=== PATIENT | male | born 1960 | race African-American/Black ===

== ENCOUNTER 2018-07-18 15:30 | Inpatient (IN) | payer MEDICAID, OTHER ==
[~2018-07-18] VITALS: Ht 152.4 cm; Wt 78.0 kg
--- NOTE | 2018-07-18 15:30 | NUR ---
SENT FROM SNF FOR ABDOMINAL DISTENSION. R/O POSSIBLE INTRA ABD ABSCESS, RECTAL TEMP 101.3 ZIPPER IRONER. NAD NOTED, VSS, RESP EVEN AND UNLABORED, PT WAS PUT ON MONITOR, AND HOSPITAL GOWN. WAITING FOR MD ELLIOTT.
[2018-07-18 15:50] VITALS: BP 122/77
--- NOTE | 2018-07-18 16:13 | NUR ---
RT RECD PT TRACHED INTACT AND SECURED WITH PORTEX 8. CAME IN FOR ABDOMINAL DISTENTION. ON [facility] VENT NURIA ORDERED SETTING AC 16 500 40% +5. NO RESP DISTRESS WILL CONTINUE TO MONITOR BAG AND MASK AT HOB. SX THICK YELLOW MODERATE SECRETIONS Addendum: 07/18/18 at 1615 by AYESHA ENCARNACION RT Amended: Links added.
[2018-07-18] MEDS ORDERED: VANCOMYCIN 1 GM in IV D5W 250 ML IV ONE (16:30)
[2018-07-18] MEDS ORDERED: IV NS 0.9% 1,000 ML IV PRN ×3 (16:30→23:37)
[2018-07-18] MEDS ORDERED: PIPERACILLIN /TAZOBACTAM 3.375 G in IV D5W 50 ML IV ONE (16:30)
[2018-07-18 16:32] LABS: BASOPHILS # (AUTO) 0.1 /CMM (0.0-0.2); BASOPHILS % (AUTO) 0.3 % (0.0-2.0); EOSINOPHILS % (AUTO) 1.2 % (0.0-6.0); HEMATOCRIT 36 % (39-51); HEMOGLOBIN 11.6 g/dL (13.5-17.5); MEAN CORPUSCULAR HEMOGLOBIN 28 PG (26.0-33.0); MEAN CORPUSCULAR HGB CONC 32 g/dl (31.0-36.0); MEAN CORPUSCULAR VOLUME 88 fL (80-96); MONOCYTES # (AUTO) 1.6 /CMM (0.1-1.30); MONOCYTES % (AUTO) 6.9 % (2.0-12.0); NEUTROPHILS # (AUTO) 18.2 /CMM (1.8-8.9); NEUTROPHILS % (AUTO) 78.6 % (43.0-81.0); PLATELET COUNT (AUTO) 347 /CMM (150-450); RDW COEFFICIENT OF VARIATION 16.5 (11.5-15.0); WHITE BLOOD COUNT (AUTO) 23.2 K/uL (4.3-11.0)
[2018-07-18 16:42] LABS: CALCIUM, SERUM 9.8 mg/dL (8.5-10.1); CARBON DIOXIDE 27 mmol/L (21-32); CHLORIDE 108 mmol/L (98-107); CREATININE 1.4 mg/dL (0.6-1.3); GLUCOSE 141 mg/dL (74-106); POTASSIUM 3.6 mmol/L (3.5-5.1); SODIUM SERUM 144 mmol/L (136-145); UREA NITROGEN, BLOOD 38 mg/dL (7-18)
[2018-07-18 16:48] LABS: ALANINE AMINOTRANSFERASE 27 U/L (12-78); ALBUMIN 3.3 g/dL (3.4-5.0); ALKALINE PHOSPHATASE 100 U/L (46-116); ASPARTATE AMINOTRANSFERASE 15 U/L (15-37); BILIRUBIN,DIRECT 0.3 mg/dL (0.0-0.2); TOTAL PROTEIN, SERUM 8.5 g/dL (6.4-8.2)
[2018-07-18 16:50] LABS: TROPONIN I < 0.017 ng/mL (0.00-0.056)
--- NOTE | 2018-07-18 17:02 | NUR ---
URINEN SENT TO LAB
--- NOTE | 2018-07-18 17:12 | NUR ---
CALLED [facility] FOR PANEL CALL AND JEN REED NP WAS PAGED
[2018-07-18 17:14] LABS: APPEARANCE,URINE Clear (CLEAR); BILIRUBIN,URINE Negative (NEGATIVE); BLOOD, URINE Trace-lysed Ery/uL (NEGATIVE); COLOR,URINE Dark (YELLOW); KETONES,URINE Negative (NEGATIVE); LEUKOCYTE ESTERASE ,URINE Negative (NEGATIVE); NITRITE, URINE Negative (NEGATIVE); PROTEIN,URINE 30 mg/dl (NEGATIVE); UGLUCOSE Negative (NEGATIVE); UROBILINOGEN,URINE 0.2 EU/dL (0.2)
--- NOTE | 2018-07-18 17:24 | NUR ---
PT IS ASSIGNED TO [facility] RM#: [id number], DX: SEPSIS, AND ACCEPTING: JEN REED NP
[2018-07-18] MEDS ORDERED: NUT.237L31 GT (17:27)
[2018-07-18] MEDS ORDERED: MIDO10TA GT (17:27)
[2018-07-18] MEDS ORDERED: PANT40SU2 GT (17:27)
[2018-07-18] MEDS ORDERED: LEVE100S GT (17:27)
[2018-07-18] MEDS ORDERED: AMIO100T4 GT (17:27)
[2018-07-18 17:28] VITALS: BP 114/67
[2018-07-18 17:40] LABS: EOSINOPHILS % (MANUAL) 1 % (0-4); LYMPHOCYTES % (MANUAL) 24 % (16-48); MONOCYTES % (MANUAL) 2 % (0-11.0); NEUTROPHILS % (MANUAL) 73 (42-76)
[2018-07-18 17:43] LABS: BACTERIA,URINE None seen /HPF (None Seen); SQUAMOUS EPITHELIAL CELL,UR Few /HPF (None Seen); WBC,URINE 0-2 /HPF (0-3)
--- NOTE | 2018-07-18 19:20 | NUR ---
REPORT RECEIVED FROM MATILDA ALONZO FOR MANOHAR. PENDING CT THEN TRANSFER TO FLOOR. NAD NOTED. TOLERATING ON VENT AT ORDERED SETTINGS.
--- NOTE | 2018-07-18 19:46 | NUR ---
PT HAD CT SCAN, TRANSPORTED VIA ACLS PROTOCOL WITH RN AND RT
[2018-07-18 19:49] VITALS: BP 113/70
--- NOTE | 2018-07-18 20:45 | NUR ---
CALLED SALES CENTER MANAGER SURGEON, DR MOSS
[2018-07-18 20:54] VITALS: BP 109/68
--- NOTE | 2018-07-18 21:16 | NUR ---
PER DR WHYTE, HE WILL REMOVE GTUBE AND REPLACE WITH [facility] CATH THEN VERIFY PLACEMENT PRIOR TO TRANSPORT TO FLOOR
[2018-07-18] MEDS ORDERED: DIATR MEGLU/DIATRIZOATE SODIUM 30 ML BOTTLE (GASTROGRAPHIN) ONE (21:34)
[2018-07-18] MEDS ORDERED: DIATR MEGLU/DIATRIZOATE SODIUM 30 ML BOTTLE (GASTROGRAPHIN) PO ONE (22:00)
[2018-07-18 22:30] VITALS: BP 112/66
--- NOTE | 2018-07-18 22:30 | NUR ---
MOBILE APPLICATION DEVELOPMENT LEADCHILD WELFARE ASSISTANT NOTES RECEIVED PATIENT FROM ER VIA RROXBURY, ACCOMPANIED BY STAFF & RT USING ACLS PROTOCOL TO ROOM 308-1. PT IS NON VERBAL, OBTUNDED, OPENS EYES TO VERBAL & TACTILE STIMULI. NO SOB, RESP EVEN & UNLABORED, NO S/S OF PAIN, NO ACUTE DISTRESS NOTED UPON ADMISSION. ASSISTED TO BED SAFELY, HAS TRACH & CONNECTED TO MECHANICAL VENTILATOR BY RT WITH SETTINGS ORDERED. IV ACCESS TO LFA G 18, INTACT PATENT & RFA G 22, INTACT PATENT, SL @ THIS TIME. BODY ASSESSMENT DONE, PHOTOS TAKEN, PLACED IN THE CHART. DRESSINGS DONE TO MULTIPLE OPEN SKIN AREAS. ABDOMINAL DISTENTION NOTED WITH DIMINISHED BOWEL SOUNDS X4 QUADRANTS. NOTED WITH GT SITE WITH [facility] CATH 16FR IN PLACE TO KEEP STOMA SITE OPEN SINCE GT WAS REMOVED BY ER MD & DR MOSS WILL REPLACE GT IN AM SHIFT PER AVINASH BRITT RN. NOTED WITH GORDO BELOW CALI AMPUTATION. ALL NEEDS MET. BELONGINGS LIST REVIEWED BY SEWER PIPE PRESS OPERATOR & DOCUMENTED. PT NOTED WITH BODY TEMP OF 100.4, COOLING MEASURES DONE, EXTRA CLOTHING REMOVED FOR AIR VENTILATION. WILL RECHECK BODY TEMP ACCORDINGLY. WILL F/U WITH EPIC FOR ADMITTING ORDERS. SAFETY MEASURES IN PLACE. BED IN LOW LOCKED POSITION, CALL LIGHT WITHIN REACH. WILL MONITOR CLOSELY FOR ANY MANOHAR.
[2018-07-18 22:32] VITALS: BP 112/66
--- NOTE | 2018-07-18 22:32 | NUR ---
PT TRANSPORTED TO RM 308 IN STABLE CONDITION VIA ACLS PROTOCOL WITH RT
--- NOTE | 2018-07-18 23:00 | NUR ---
WRONG TIME DOCUMENTATION PATIENT WAS TURNED/REPOSITIONED @ 2300 TO RIGHT LATERAL POSITION, NOT @ 2100. PATIENT RECEIVED FROM ER @ 2230. WILL TURN/REPOSITION PER PROTOCOL.
--- NOTE | 2018-07-18 23:37 | NUR ---
BOOSTER ASSEMBLER NOTE REVIEWED ALL ORDERS & VERIFIED. NOTED & CARRIED OUT. WILL CONTINUE TO MONITOR THE PT CLOSELY.
[2018-07-18] MEDS ORDERED: ENOXAPARIN SODIUM 40 MG/0.4 ML DISP.SYRIN SQ ONE (23:45)
--- NOTE | 2018-07-18 23:58 | NUR ---
RECHECKED BODY TEMP PT'S BODY TEMP NOTED TO BE 99.4 @ THIS TIME. ROOM TEMP MAINTAINED. SPONGE BATH GIVEN. WILL OBSERVE CLOSELY.
[2018-07-19] VITALS: BP 104/63
[2018-07-19] MEDS ORDERED: ONDANSETRON HCL/PF 4 MG/2 ML VIAL IVP PRN
[2018-07-19] MEDS ORDERED: MORPHINE SULFATE INJ 2 MG/ML DISP.SYRIN IV PRN
[2018-07-19] MEDS ORDERED: ACETAMINOPHEN 650 MG/SUPP.RECT RC PRN
--- NOTE | 2018-07-19 00:31 | NUR ---
HELD LOVENOX PT WILL HAVE G-TUBE REPLACEMENT PROCEDURE ON 07/19/18 PER HOOP RIVETING MACHINE OPERATOR, INFORMED MD & MD ORDERED TO HOLD LOVENOX DUE TO G-TUBE REPLACEMENT IN AM. ORDER NOTED & CARRIED OUT. CHARGE NURSE MADE AWARE.
--- NOTE | 2018-07-19 03:35 | NUR ---
PILOT CONTROL OPERATOR NOTE PT'S BODY TEMP NOTED TO BE 97.8 AXILLARY @ THIS TIME. PT IS RELAXED, NO S/S OF PAIN NOTED. NO ACUTE CHANGES NOTED. MONITORING CLOSELY.
[2018-07-19 04:00] VITALS: BP 123/67
--- NOTE | 2018-07-19 06:27 | NUR ---
PRN TYLENOL SUPP GIVEN CHECKED BODY TEMP AGAIN, NOTED WITH BODY TEMP OF 100.4 AXILLARY. COOLING MEASURES DONE, ICE PACKS PLACED. PRN TYLENOL SUPP GIVEN ORDERED. WILL ENDORSE TO AM RN TO CONTINUE MONITORING CLOSELY FOR MANOHAR.
--- NOTE | 2018-07-19 06:50 | NUR ---
SENIOR WEALTH ADVISOR CLOSING NOTES PT SLEPT INTERMITTENTLY @ NIGHT, NON VERBAL, OBTUNDED, OPENS EYES TO VERBAL & TACTILE STIMULI. NO SOB, RESP EVEN & UNLABORED, NO S/S OF PAIN, NO ACUTE DISTRESS NOTED. IV ACCESS TO LFA G 18, INTACT PATENT RUNNING WITH IVF & RFA G 22, INTACT PATENT, SL. ON TELE MONITORING WITH SR 99. NPO. HOB ELEVATED. GT SITE WITH [facility] CATH 16FR IN PLACE TO KEEP STOMA SITE OPEN. ALL NEEDS MET. SAFETY MEASURES IN PLACE. BED IN LOW LOCKED POSITION, CALL LIGHT WITHIN REACH. WILL ENDORSE TO AM RN FOR CONTINUITY OF CARE.
[2018-07-19 07:37] LABS: EOSINOPHILS % (AUTO) 2.1 % (0.0-6.0); HEMATOCRIT 30 % (39-51); HEMOGLOBIN 9.8 g/dL (13.5-17.5); LYMPHOCYTES # (AUTO) 2.3 /CMM (0.8-4.8); LYMPHOCYTES % (AUTO) 13.3 % (20.0-44.0); MEAN CORPUSCULAR HEMOGLOBIN 29 PG (26.0-33.0); MEAN CORPUSCULAR HGB CONC 32 g/dl (31.0-36.0); MEAN CORPUSCULAR VOLUME 90 fL (80-96); MONOCYTES # (AUTO) 0.9 /CMM (0.1-1.30); MONOCYTES % (AUTO) 5.1 % (2.0-12.0); NEUTROPHILS # (AUTO) 13.7 /CMM (1.8-8.9); NEUTROPHILS % (AUTO) 79.5 % (43.0-81.0); PLATELET COUNT (AUTO) 269 /CMM (150-450); RDW COEFFICIENT OF VARIATION 17.4 (11.5-15.0); RED BLOOD CELL COUNT(AUTO) 3.36 MIL/uL (4.5-6.0); WHITE BLOOD COUNT (AUTO) 17.3 K/uL (4.3-11.0)
[2018-07-19 07:57] LABS: CALCIUM, SERUM 8.8 mg/dL (8.5-10.1); CREATININE 1.3 mg/dL (0.6-1.3); PHOSPHORUS 1.9 mg/dL (2.5-4.9); POTASSIUM 3.4 mmol/L (3.5-5.1)
[2018-07-19 08:00] VITALS: BP 137/72
--- NOTE | 2018-07-19 08:00 | NUR ---
Tele/RN - Assessment Patient awake, alert to self, no s/s of pain, no apparent distress noted, vent dependent with trach Portex 8 secured and intact, vent settings as follows: AC16, VT600, FiO2 40%, PEEP 5, tolerated well. Ambu bag/mask at bedside and vent alarms audible. Tele shows SR. IVF NS at 75 ml/hr infusing well on the LFA with no signs of infiltration. Skin assessment done, noted with BUE open blisters, bilateral BKA with healed stumps, sacral scarring. Wound nurse triggered. Patient on MCKENNA mattress. Patient repositioned q2h and as needed for comfort and circulation. Fall and aspiration precautions observed at all times. Will continue with current treatment plan.
[2018-07-19 08:02] LABS: THYROID STIMULATING HORMONE 2.404 uIU/mL (0.358-3.74)
--- NOTE | 2018-07-19 08:53 | NUR ---
WOUND CARE CONSULT: PT PRESENTS WITH BILATERAL BKA/S (HEALED STUMPS), SACRAL SCARRING, BILATERAL UPPER EXTREMITY OPEN BLISTERS (UNKNOWN ETIOLOGY). RECOMMENDATIONS MADE FOR SKIN PROTECTION AND WOUND CARE. DISCUSSED WITH NURSING STAFF. PT ON THERON ISOFLEX LOW AIRLOSS BED. ABDOMEN IS LARGE AND DISTENDED WITH ASHFORD CATH IN G TUBE SITE FOR DRAINAGE BY Regina DEFER TO FOR G TUBE SITE. WILL SEE PRN. ARIAS IN AGREEMENT WITH PLAN OF CARE. Addendum: 07/19/18 at 0855 by CLIFFORD STEVENS WNDNU Amended: Links added.
[2018-07-19] MEDS ORDERED: FEE PK DOSING 1 MIN EA MC ONE (09:09)
[2018-07-19] MEDS: Z GUARD REMEDY 2 OZ OINT TP SCH (10:00)
[2018-07-19] MEDS: Z GUARD REMEDY 2 OZ OINT TP PRN (11:09)
[2018-07-19] MEDS: POTASSIUM CL. PREMIX PERIPHER. 50 ML IV SCH ×2 (11:09→12:07)
[2018-07-19] MEDS: VANCOMYCIN 1 GM in IV D5W 250 ML IV SCH (11:26)
[2018-07-19] MEDS ORDERED: IV NS 0.9% 250 ML IV ONE (11:30)
[2018-07-19] MEDS: PIPERACILLIN /TAZOBACTAM 3.375 G in IV D5W 50 ML IV SCH ×3 (12:14→23:17)
[2018-07-19] MEDS: IV NS 0.9% 1,000 ML IV PRN (12:16)
[2018-07-19] MEDS ORDERED: POTASSIUM PHOSPHATE MM 7.5 MMOL in IV D5W 100 ML IV SCH (13:00)
--- NOTE | 2018-07-19 14:00 | NUR ---
Tele/RN - Consent Telephone consent obtained from Morenita Pina for EGD with PEG placement.
[2018-07-19 16:00] VITALS: BP 119/77
--- NOTE | 2018-07-19 17:06 | NUR ---
Tele/RN - Notes No new events seen, remain afebrile, without distress on the ventilator. Potassium and phosphate repleted. Family updated on plan of care. Will continue with current medical management.
[2018-07-19] MEDS: PANTOPRAZOLE 40 MG VIAL IV SCH (17:32)
--- NOTE | 2018-07-19 19:16 | NUR ---
PT RCVD TRACH PORTEX 8 ON VENT WITH NOTED SETTINGS . NURIA ORDERED SETTING AC 16 600 40% +5. TRACH INTACT AND SECURED. COURT OPERATIONS CLERK CUFF PRESSURE NOTED. VENT PLUGGED INTO RED OUTLET, ALARMS SET AND AUDIBLE . AMBU BAG @ BEDSIDE. NO RESP DISTRESS NOTED AT THIS TIME . SUCTIONED MODERATE AMOUNT OF THICK YELLOW SECRETIONS. WILL CONTINUE TO MONITOR THE PT.
--- NOTE | 2018-07-19 19:30 | NUR ---
COURSE DEVELOPER OPENING NOTES RECEIVED PATIENT RESTING, NON VERBAL, OBTUNDED, OPENS EYES TO VERBAL & TACTILE STIMULI. ON [facility] VENTILATOR WITH SETTINGS PER RT. NO SOB, RESP EVEN & UNLABORED, NO S/S OF PAIN, NO ACUTE DISTRESS NOTED. IV ACCESS TO LFA G 18, INTACT PATENT RUNNING WITH IVF & R HAND G 22, INTACT PATENT, SL. ON TELE MONITORING WITH SR 75. PT REMAINED A FEBRILE THROUGHOUT AM SHIFT, PER AM RN. NPO. HOB ELEVATED. GT SITE WITH [facility] CATH 16FR IN PLACE TO KEEP STOMA SITE OPEN, DRAINING DARK YELLOW FLUID FROM ABDOMEN. BLISTERS, OPEN SKIN DRESSINGS INTACT. SAFETY MEASURES IN PLACE. BED IN LOW LOCKED POSITION, CALL LIGHT WITHIN REACH. WILL CONTINUE TO MONITOR.
[2018-07-19 19:37] VITALS: BP 107/78
[2018-07-19 20:00] VITALS: BP 107/78
[2018-07-19] MEDS: ENOXAPARIN SODIUM 40 MG/0.4 ML DISP.SYRIN SQ SCH (21:00)
--- NOTE | 2018-07-19 21:28 | NUR ---
HELD LOVENOX PT WILL HAVE GT PLACEMENT PROCEDURE ON 07/20/18, INFORMED JOSEFINA MATHIS & JOSEFINA ORDERED TO HOLD LOVENOX TONIGHT. NOTED & CARRIED OUT.
[2018-07-20] VITALS (7 sets, daily range): BP systolic 101–142; BP diastolic 59–68
[2018-07-20] MEDS: IV NS 0.9% 1,000 ML IV PRN ×2 (03:42→18:15)
[2018-07-20] MEDS: VANCOMYCIN 1 GM in IV D5W 250 ML IV SCH ×2 (05:02→22:03)
[2018-07-20] MEDS: PIPERACILLIN /TAZOBACTAM 3.375 G in IV D5W 50 ML IV SCH ×4 (06:09→23:07)
[2018-07-20 06:21] LABS: BASOPHILS % (AUTO) 0.4 % (0.0-2.0); EOSINOPHILS % (AUTO) 4.4 % (0.0-6.0); HEMATOCRIT 28 % (39-51); HEMOGLOBIN 8.9 g/dL (13.5-17.5); LYMPHOCYTES # (AUTO) 1.5 /CMM (0.8-4.8); LYMPHOCYTES % (AUTO) 11.5 % (20.0-44.0); MEAN CORPUSCULAR HEMOGLOBIN 29 PG (26.0-33.0); MEAN CORPUSCULAR HGB CONC 32 g/dl (31.0-36.0); MEAN CORPUSCULAR VOLUME 90 fL (80-96); MONOCYTES # (AUTO) 0.7 /CMM (0.1-1.30); MONOCYTES % (AUTO) 5.5 % (2.0-12.0); NEUTROPHILS % (AUTO) 78.2 % (43.0-81.0); PLATELET COUNT (AUTO) 261 /CMM (150-450); RDW COEFFICIENT OF VARIATION 16.9 (11.5-15.0); RED BLOOD CELL COUNT(AUTO) 3.13 MIL/uL (4.5-6.0); WHITE BLOOD COUNT (AUTO) 12.8 K/uL (4.3-11.0)
[2018-07-20 06:50] LABS: CALCIUM, SERUM 8.6 mg/dL (8.5-10.1); CREATININE 1.3 mg/dL (0.6-1.3); PHOSPHORUS 3.4 mg/dL (2.5-4.9); POTASSIUM 3.3 mmol/L (3.5-5.1)
--- NOTE | 2018-07-20 06:52 | NUR ---
SUPERVISOR DENTURE DEPARTMENT CLOSING NOTES PT SLEPT INTERMITTENTLY @ NIGHT, NON VERBAL, OBTUNDED, OPENS EYES TO VERBAL & TACTILE STIMULI. NO SOB, RESP EVEN & UNLABORED, NO S/S OF PAIN, NO ACUTE DISTRESS NOTED. REMAINED AFEBRILE ALL NIGHT. IV ACCESS TO LFA G 18, INTACT PATENT RUNNING WITH IVF & R HAND G 22, INTACT PATENT, SL. ON TELE MONITORING WITH SR 73. NPO. SUCTIONED PRN. HOB ELEVATED. GT SITE WITH [facility] CATH 16FR IN PLACE TO KEEP STOMA SITE OPEN, DRAINING DARK YELLOW COLOR FLUID-750ML. ALL NEEDS MET. SAFETY MEASURES IN PLACE. BED IN LOW LOCKED POSITION, CALL LIGHT WITHIN REACH. WILL ENDORSE TO AM RN FOR CONTINUITY OF CARE.
--- NOTE | 2018-07-20 07:26 | NUR ---
RT RECEIVED PT TRACH VENT DEPENDENT WITH NOTED SETTINGS. CLAIMS REPRESENTATIVE DONE AND TRACH IS SECURE. AMBU BAG NOTED HOB. VENT ALARMS CHECKED AND AUDIBLE. VENT PLUGGED IN RED OUTLET. PT ON CONTINUOUS PULSE OX, SPO2 AND HR WITHIN NORMAL LIMITS. B/S BILATERAL RHONCHI. SX WITH MOD THK YELLOW SECRETIONS. PT TOLERATING SETTINGS WELL, NO SOB OR RESP DISTRESS NOTED. WILL CONTINUE TO MONITOR T/O SHIFT.
--- NOTE | 2018-07-20 07:46 | NUR ---
Tele/RN - Assessment Patient awake, alert to self, no s/s of pain, not in any form of distress, tolerating vent settings well. Tele shows SR. IVF NS at 75 ml/hr infusing well on the LFA with no signs of infiltration. Will do wound treatment as ordered. Plan for EGD with PEG placement today or tomorrow per GI. Fall and aspiration precautions maintained. Will continue with current treatment plan.
[2018-07-20] MEDS ORDERED: IV NS 0.9% 500 ML IV ONE (08:00)
[2018-07-20] MEDS: Z GUARD REMEDY 2 OZ OINT TP SCH (08:17)
[2018-07-20] MEDS: POTASSIUM CL. PREMIX PERIPHER. 50 ML IV SCH ×2 (12:55→13:55)
--- NOTE | 2018-07-20 14:30 | NUR ---
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 Contact isolation precautions initiated. Will notify Morenita of isolation and will provide education material for reference.
[2018-07-20] MEDS: PANTOPRAZOLE 40 MG VIAL IV SCH (17:15)
--- NOTE | 2018-07-20 18:33 | NUR ---
Tele/RN - Closing Notes No significant change in condition, remain afebrile, SR, tolerating vent settings well, no apparent distress seen. Gastric output was 200 cc this shift, stoma culture preliminary was negative. Plan for EGD with PEG in AM. Family updated on plan of care.
--- NOTE | 2018-07-20 19:10 | NUR ---
FARMER DIVERSIFIED CROPS INITIAL NOTES Received patient asleep, easily arouse, on Dejesus's position on bed, non-verbal. On enhanced contact precaution for MRSA nares. With vent tolerated well, no SOB/respiratory distress noted. On tele monitor with SR @ 60s. Abdomen noted distended. With patent Olmos on GT site with greenish output. With patent IV line LFA G#18 with NS infusing well @ 75cc/hr. With patent SL @ R hand G#22. For EGD with Gt placement tomorrow. Kept clean, dry and comfortable. Will continue to monitor.
--- NOTE | 2018-07-20 19:37 | NUR ---
PT RCVD TRACH PORTEX 8 ON VENT WITH NOTED SETTINGS . NURIA ORDERED SETTING AC 16 600 40% +5. TRACH INTACT AND SECURED. PT IS AWAKE AND DOES NOT FOLLOW COMMANDS. LIVE AMMUNITION INSPECTOR CUFF PRESSURE NOTED. VENT PLUGGED INTO RED OUTLET, ALARMS SET AND AUDIBLE . AMBU BAG @ BEDSIDE. NO RESP DISTRESS NOTED AT THIS TIME . SUCTIONED MODERATE AMOUNT OF THICK YELLOW SECRETIONS. WILL CONTINUE TO MONITOR THE PT.
[2018-07-20] MEDS: ENOXAPARIN SODIUM 40 MG/0.4 ML DISP.SYRIN SQ SCH (21:00)
--- NOTE | 2018-07-20 21:07 | NUR ---
INDEPENDENT TRADER NOTES Spoke with Dr. Moyer with order to hold Lovenox for tonight's dose, patient for EGD with GT placement tomorrow.
[2018-07-20] MEDS: MUPIROCIN OINT 2% 22 GM TUBE SCH (21:12)
[2018-07-21] VITALS: BP 122/74
[2018-07-21 04:00] VITALS: BP 129/69
[2018-07-21] MEDS: PIPERACILLIN /TAZOBACTAM 3.375 G in IV D5W 50 ML IV SCH ×4 (05:12→23:26)
[2018-07-21] MEDS: IV NS 0.9% 1,000 ML IV PRN ×2 (06:23→22:11)
[2018-07-21 06:28] LABS: BASOPHILS % (AUTO) 0.2 % (0.0-2.0); EOSINOPHILS % (AUTO) 6.4 % (0.0-6.0); HEMATOCRIT 29 % (39-51); HEMOGLOBIN 9.4 g/dL (13.5-17.5); LYMPHOCYTES # (AUTO) 1.8 /CMM (0.8-4.8); LYMPHOCYTES % (AUTO) 17.9 % (20.0-44.0); MEAN CORPUSCULAR HEMOGLOBIN 29 PG (26.0-33.0); MEAN CORPUSCULAR HGB CONC 32 g/dl (31.0-36.0); MEAN CORPUSCULAR VOLUME 90 fL (80-96); MONOCYTES # (AUTO) 0.6 /CMM (0.1-1.30); MONOCYTES % (AUTO) 6.4 % (2.0-12.0); NEUTROPHILS % (AUTO) 69.1 % (43.0-81.0); PLATELET COUNT (AUTO) 269 /CMM (150-450); RDW COEFFICIENT OF VARIATION 16.9 (11.5-15.0); RED BLOOD CELL COUNT(AUTO) 3.24 MIL/uL (4.5-6.0); WHITE BLOOD COUNT (AUTO) 10.1 K/uL (4.3-11.0)
--- NOTE | 2018-07-21 06:42 | NUR ---
CHRISTMAS TREE CONTRACTOR CLOSING NOTES Patient awake on bed, non-verbal. With vent tolerated well, no respiratory distress noted. IV line remained patent @ R hand G#22, SL and LFA G#18 with NS infusing well @ 75cc/hr. With patent Olmos at PEG site greenish output 250ml within the shift. For EGD with PEG placement today around 3pm as scheduled, consent done, at patient's chart. For type and screen. Initiated procedure checklist. or stool occult test, no BM noted within the shift. For Vanco trough before the 4th dose 07/21/2018 1600H. Abdomen distention still noted. On tele monitor with SR @ 70s. No new unusualities noted, afebrile throughout the shift.
[2018-07-21 06:56] LABS: CREATININE 1.1 mg/dL (0.6-1.3); POTASSIUM 3.2 mmol/L (3.5-5.1)
--- NOTE | 2018-07-21 07:35 | NUR ---
RT PT RECEIVED WITH A PORTEX 8 TRACH ON THE VENT WITH NOTED SETTINGS. PT IS AWAKE AND RESPONDS TO STIMULI WHEN SX'D. VENT ALARMS ARE SET AND AUDIBLE WITH BVM BY BEDSIDE. CAR MECHANIC CUFF PRESSURE NOTED. VENT IS PLUGGED INTO RED OUTLET. SX'D SMALL THIN WHITE/CLEAR SECRETIONS. NO RESPIRATORY DISTRESS NOTED AT THIS TIME, WILL CONTINUE TO MONITOR. Addendum: 07/21/18 at 0848 by JOVITA CHILDERS RT Amended: Links added.
[2018-07-21 08:00] VITALS: BP 110/75
--- NOTE | 2018-07-21 08:00 | NUR ---
Tele/RN - Assessment Patient awake, alert to self, no apparent distress, tolerating vent settings well. Tele shows SR. IVF NS at 75 ml/hr infusing well on the LFA with no signs of infiltration. Abdomen distended, shepard catheter to gastric stoma draining greenish output. Labs reviewed noted with low potassium, will relay to Md. Patient scheduled for EGD with PEG placement today at 15:00. Contact precautions maintained for MRSA nares. Will continue with current medical management.
[2018-07-21] MEDS: Z GUARD REMEDY 2 OZ OINT TP SCH (08:14)
[2018-07-21] MEDS: MUPIROCIN OINT 2% 22 GM TUBE SCH ×2 (08:16→20:31)
[2018-07-21] MEDS: POTASSIUM CL. PREMIX PERIPHER. 50 ML IV SCH ×2 (09:53→11:14)
[2018-07-21] MEDS ORDERED: POTASSIUM CHLORIDE 10 MEQ/50 ML PREMIXED IVPB FOR PERIPHERAL LINE IV ONE (10:00)
[2018-07-21 16:00] VITALS: BP 110/67
--- NOTE | 2018-07-21 16:25 | NUR ---
Tele/RN - EGD with PEG placement Patient tolerated EGD/PEG placement, vitals monitored per protocol, no s/s of pain. Per Dr. Randle, may use new PEG tomorrow AM. Post op orders noted. Will continue to monitor closely.
[2018-07-21] MEDS: VANCOMYCIN 1 GM in IV D5W 250 ML IV SCH (17:24)
[2018-07-21] MEDS: PANTOPRAZOLE 40 MG VIAL IV SCH (17:25)
--- NOTE | 2018-07-21 18:33 | NUR ---
Tele/RN - Closing Notes No acute events, remain afebrile, no s/s of pain, tele shows SB, tolerating vent settings well, no apparent distress seen. Olmos catheter removed from the abdominal fistula tract, dry dressing in place. New PEG clamped, continue IVF, Vanco and Zosyn for sepsis, potassium replaced. Family updated on plan of care. Will continue with current medical management.
--- NOTE | 2018-07-21 19:05 | NUR ---
REBAR WORKER INITIAL NOTES Received patient asleep on bed on Dejesus's position. On vent tolerated well, no SOB/respiratory distress noted, saturating at 100%. On tele monitor with Sinus Naren @ 48 while asleep but increased to 60s if awake. On S/P PEG insertion day 1, site clamped, may use PEG tomorrow AM per order. Old PEG site covered with dressing, clean and dry. With patent IV line with NS infusing well @ 75ml/hr LFA G18 and patent SL R hand G#22. No BM in the previous shift, still for Stool OB. Kept clean and dry. Will continue to monitor.
--- NOTE | 2018-07-21 19:39 | NUR ---
PT RCVD TRACH PORTEX 8 ON VENT WITH NOTED SETTINGS . NURIA ORDERED SETTING AC 16 600 30% +5. TRACH INTACT AND SECURED. PT IS AWAKE AND DOES NOT FOLLOW COMMANDS. MANAGER COMMUNITY DEVELOPMENT CUFF PRESSURE NOTED. VENT PLUGGED INTO RED OUTLET, ALARMS SET AND AUDIBLE . AMBU BAG @ BEDSIDE. NO RESP DISTRESS NOTED AT THIS TIME . SUCTIONED MODERATE AMOUNT OF THICK YELLOW SECRETIONS. WILL CONTINUE TO MONITOR THE PT.
[2018-07-21 20:00] VITALS: BP 122/71
[2018-07-21] MEDS: ENOXAPARIN SODIUM 40 MG/0.4 ML DISP.SYRIN SQ SCH (20:30)
[2018-07-22] VITALS: BP 118/67
[2018-07-22 04:00] VITALS: BP 129/73
[2018-07-22] MEDS: PIPERACILLIN /TAZOBACTAM 3.375 G in IV D5W 50 ML IV SCH ×3 (05:00→17:34)
[2018-07-22] MEDS ORDERED: GLUCERNA 1.2 1,000 ML BOTTLE GT PRN ×2 (06:00→08:10)
--- NOTE | 2018-07-22 06:34 | NUR ---
CARPENTRY SPECIALIST CLOSING NOTES Patient awake on bed, non-verbal, no s/s of discomfort noted. On vent, tolerated well, no SOB/respiratory distress noted. On tele monitor - Sinus Naren @ 58. Old PEG sited noted with soaked dressing with purulent discharge, cleaned and changed with new clean and dry dressing. Routine care done with the CATTLE ALLEY WORKER, patient tolerated the procedure well. Initiated GT feeding Glucerna 1.2 @ 60ml/hr for 20hrs as ordered; checked PEG site with water, no leaking noted. Monitored closely for adverse reactions. Stool OB was cancelled. Peripheral IV lines remained patent R hand G#22, SL and LFA G#18 with NS infusing well @ 75ml/hr. Still on IV ATB for sepsis, no ASE noted, afebrile the whole shift. Noted with minimal yellowish secretions, suctioned PRN, container and tubings changed per policy. Kept clean, dry and comfortable. Endorsed to the next shift.
[2018-07-22 07:00] LABS: CALCIUM, SERUM 8.7 mg/dL (8.5-10.1); CREATININE 1.1 mg/dL (0.6-1.3); POTASSIUM 3.2 mmol/L (3.5-5.1)
[2018-07-22 07:01] LABS: BASOPHILS % (AUTO) 0.4 % (0.0-2.0); EOSINOPHILS % (AUTO) 6.5 % (0.0-6.0); HEMATOCRIT 29 % (39-51); HEMOGLOBIN 9.1 g/dL (13.5-17.5); LYMPHOCYTES # (AUTO) 1.9 /CMM (0.8-4.8); LYMPHOCYTES % (AUTO) 23.6 % (20.0-44.0); MEAN CORPUSCULAR HEMOGLOBIN 29 PG (26.0-33.0); MEAN CORPUSCULAR HGB CONC 32 g/dl (31.0-36.0); MEAN CORPUSCULAR VOLUME 90 fL (80-96); MONOCYTES # (AUTO) 0.6 /CMM (0.1-1.30); MONOCYTES % (AUTO) 7.5 % (2.0-12.0); NEUTROPHILS # (AUTO) 4.9 /CMM (1.8-8.9); PLATELET COUNT (AUTO) 255 /CMM (150-450); RDW COEFFICIENT OF VARIATION 16.9 (11.5-15.0); RED BLOOD CELL COUNT(AUTO) 3.18 MIL/uL (4.5-6.0); WHITE BLOOD COUNT (AUTO) 7.9 K/uL (4.3-11.0)
--- NOTE | 2018-07-22 07:48 | NUR ---
RN OPENING NOTES PT RECEIVED IN BED IN LOWEST AND LOCKED POSITION, AWAKE, NON-VERBAL, NO SIGNS OF PAIN OR DISCOMFORT NOTED; ON TELE MONITOR; PT IS VENT DEPENDENT, VENT SETTINGS NOTED, NO SIGNS OF SOB/RESPIRATORY DISTRESS NOTED; PT STARTED ON AM TUBE FEEDING AND WILL MONITOR AND ASSESS RESIDUALS, BOTH R HAND G#22 AND LFA G #18 IV PATENT AND INTACT, CALL LIGHT WITHIN REACH AND WILL CONTINUE TO MONITOR AND ASSESS
--- NOTE | 2018-07-22 09:00 | NUR ---
RN NOTES PT ASSESSED BY KATHYA Louis CSR TECHNICIAN, NOTED WITH DESCENDED ABDOMEN, ORDERS FOR CT OF THE ABDOMEN, KEEP PT NPO, TUBE FEEDING STOPPED, RESIDUALS CHECKED 95 MLS NOTED. RADIOLOGY AND RESPIRATORY NOTIFIED, PT IS IN NO DISTRESS AND AROUSABLE TO NAME, WILL CONTINUE TO MONITOR.
[2018-07-22] MEDS: Z GUARD REMEDY 2 OZ OINT TP SCH (09:29)
[2018-07-22] MEDS: MUPIROCIN OINT 2% 22 GM TUBE SCH ×2 (09:30→20:58)
[2018-07-22 09:55] VITALS: BP 114/63
--- NOTE | 2018-07-22 10:00 | NUR ---
RN NOTES PT TAKEN TO CT OF ABDOMEN DUE TO RIGIDTY, RESPIRATORY AT BEDSIDE
[2018-07-22] MEDS: LEVETIRACETAM (500MG) 500 MG in IV NS 0.9% 100 ML IV SCH ×2 (10:30→21:47)
[2018-07-22] MEDS: AMIODARONE HCL 200 MG TABLET GT SCH (10:30)
--- NOTE | 2018-07-22 11:00 | NUR ---
RN NOTES PT RETURNED TO ROOM, IV FLUIDS RECONNECTED, CONNECTED TO VENT, RT AT BEDSIDE, VS STABLE, NO SIGNS OF ACUTE DISTRESS NOTED, WILL CONTINUE TO MONITOR AND ASSESS.
[2018-07-22 11:10] VITALS: BP 116/68
[2018-07-22] MEDS: VANCOMYCIN 1 GM in IV D5W 250 ML IV SCH (11:19)
[2018-07-22] MEDS: POTASSIUM CL. PREMIX PERIPHER. 50 ML IV SCH ×4 (14:26→19:13)
[2018-07-22] MEDS: IV NS 0.9% 1,000 ML IV PRN (14:34)
[2018-07-22] MEDS ORDERED: GLUCERNA 1.2 1,000 ML BOTTLE NG PRN (15:00)
[2018-07-22 16:00] VITALS: BP 126/90
[2018-07-22] MEDS: PANTOPRAZOLE 40 MG VIAL IV SCH (17:34)
--- NOTE | 2018-07-22 18:00 | NUR ---
RN CLOSING NOTES PT IN BED AT LOWEST AND LOCKED POSITION, NO S/S OF PAIN, TELE MONITOR SHOWS SB, VENT SETTINGS NOTED AND TOLERATED WELL, TUBE FEEDING RESTARTED AND TOLERATING WELL, CONTINUING IVF, CURRENTLY TAKING VANCO AND ZOSYN FOR SEPSIS, POTASSIUM GIVEN, HAD 2 BOWEL MOVEMENTS TODAY, WILL CONTINUE TO MONITOR AND ASSESS.
--- NOTE | 2018-07-22 19:15 | NUR ---
TELE/RN NOTES RECEIVED PT. LYING IN BED AWAKE WITH EYES OPEN, PT. IS NON-VERBAL, VENT/TRACH DEPENDENT. BREATHING EVEN AND UNLABORED. NO SOB, RESPIRATORY DISTRESS OR S/S OF PAIN NOTED AT THIS TIME. PT. WITH EXTERNAL ASSOCIATE PROFESSOR OF MUSICOLOGY PRESENT AND INTACT CURRENT RHYTHM = SINUS SHANNON HR 56. PT. WITH LEFT FOREARM 18 GAUGE PERIPHERAL IV PRESENT, PATENT AND INTACT ADMINISTERING TO PT. NS @ 75 ML/HR. PT. WITH G-TUBE PRESENT, PATENT AND INTACT ADMINISTERING TO PT. TUBE FEEDING GLUCERNA 1.2 @ 40ML/HR. PT. TOLERATING FEEDING WELL. NO RESIDUAL NOTED AT THIS TIME. BED LOCKED AND IN LOWEST POSITION, SIDE RAILS UP X3, BED ALARM ON, WILL CONTINUE TO MONITOR.
[2018-07-22 20:00] VITALS: BP 126/72
[2018-07-22] MEDS: ENOXAPARIN SODIUM 40 MG/0.4 ML DISP.SYRIN SQ SCH (20:58)
--- NOTE | 2018-07-22 21:57 | NUR ---
PT RECEIVED [facility] VENT WITH NOTED SETTINGS. PT IS AWAKE, BUT NON VERBAL. VENT ALARMS ARE ON AND AUDIBLE. AMBU BAG IS AT BEDSIDE. VENT IS PLUGGED INTO RED OUTLET. SX'D SMALL THIN CLEAR SECRETIONS. NO RESPIRATORY DISTRESS NOTED AT THIS TIME, WILL CONTINUE TO MONITOR PT. Addendum: 07/22/18 at 2159 by HOSSEIN COLLAZO RT Amended: Links added.
[2018-07-23] VITALS (7 sets, daily range): BP systolic 99–134; BP diastolic 58–80
[2018-07-23] MEDS: PIPERACILLIN /TAZOBACTAM 3.375 G in IV D5W 50 ML IV SCH ×3 (00:34→12:44)
[2018-07-23] MEDS: VANCOMYCIN 1 GM in IV D5W 250 ML IV SCH ×2 (05:09→22:44)
--- NOTE | 2018-07-23 06:44 | NUR ---
TELE/RN NOTES PT. IS LYING IN BED RESTING. PT. IS NON-VERBAL, VENT/TRACH DEPENDENT. BREATHING EVEN AND UNLABORED. NO SOB, RESPIRATORY DISTRESS OR S/S OF PAIN NOTED AT THIS TIME AND THROUGHOUT SHIFT. PT. WITH EXTERNAL SUPERVISOR FIREWORKS ASSEMBLY PRESENT AND INTACT CURRENT RHYTHM = SINUS SHANNON HR 51. PT. WITH LEFT FOREARM 18 GAUGE PERIPHERAL IV PRESENT, PATENT AND INTACT ADMINISTERING TO PT. NS @ 75 ML/HR. PT. WITH G-TUBE PRESENT, PATENT AND INTACT ADMINISTERING TO PT. TUBE FEEDING GLUCERNA 1.2 @ 50ML/HR. PT. TOLERATING FEEDING WELL. NO RESIDUAL NOTED AT THIS TIME. ALL PT. NEEDS MET. PT. OFFLOADED, TURNED AND REPOSITIONED Q2H AND NEEDED. BED LOCKED AND IN LOWEST POSITION, SIDE RAILS UP X3, BED ALARM ON, WILL ENDORSE TO DAYSLAFT NURSE FOR CONTINUITY OF CARE.
[2018-07-23 07:25] LABS: BASOPHILS % (AUTO) 0.5 % (0.0-2.0); EOSINOPHILS % (AUTO) 4.6 % (0.0-6.0); HEMATOCRIT 31 % (39-51); HEMOGLOBIN 9.8 g/dL (13.5-17.5); LYMPHOCYTES # (AUTO) 2.3 /CMM (0.8-4.8); LYMPHOCYTES % (AUTO) 26.2 % (20.0-44.0); MEAN CORPUSCULAR HEMOGLOBIN 29 PG (26.0-33.0); MEAN CORPUSCULAR HGB CONC 32 g/dl (31.0-36.0); MEAN CORPUSCULAR VOLUME 90 fL (80-96); MONOCYTES # (AUTO) 0.5 /CMM (0.1-1.30); MONOCYTES % (AUTO) 5.9 % (2.0-12.0); NEUTROPHILS # (AUTO) 5.5 /CMM (1.8-8.9); NEUTROPHILS % (AUTO) 62.8 % (43.0-81.0); PLATELET COUNT (AUTO) 231 /CMM (150-450); RDW COEFFICIENT OF VARIATION 16.2 (11.5-15.0); RED BLOOD CELL COUNT(AUTO) 3.41 MIL/uL (4.5-6.0); WHITE BLOOD COUNT (AUTO) 8.8 K/uL (4.3-11.0)
--- NOTE | 2018-07-23 07:28 | NUR ---
RN OPENING NOTES PT RECEIVED IN BED AT LOWEST AND LOCKED POSITION, PT WAS AWAKE NON-VERBAL, A/O X1, VS STABLE, NO S/S OF DISTRESS OR PAIN NOTED, VENT DEPENDENT AND SETTINGS NOTED, ON TELE MONITOR WITH CURRENT RHYTHM BEING SB = 56, LFA 18 G IV PATENT AND INTACT WITH IVF RUNNING, G TUBE PRESENT WITH FEEDING CURRENTLY RUNNING AT 50 ML AND TOLERATING FEEDING, CALL LIGHT WITHIN REACH AND WILL CONTINUE TO MONITOR
[2018-07-23 07:34] LABS: CALCIUM, SERUM 8.5 mg/dL (8.5-10.1); CREATININE 1.1 mg/dL (0.6-1.3); POTASSIUM 3.2 mmol/L (3.5-5.1)
[2018-07-23] MEDS: POTASSIUM CL. PREMIX PERIPHER. 50 ML IV SCH ×2 (08:57→11:31)
[2018-07-23] MEDS ORDERED: POTASSIUM CHLORIDE 10 MEQ/50 ML PREMIXED IVPB FOR PERIPHERAL LINE IV ONE (09:00)
[2018-07-23] MEDS: AMIODARONE HCL 200 MG TABLET GT SCH (09:00)
[2018-07-23] MEDS: Z GUARD REMEDY 2 OZ OINT TP SCH (09:08)
[2018-07-23] MEDS: MUPIROCIN OINT 2% 22 GM TUBE SCH ×2 (09:09→21:18)
[2018-07-23] MEDS: IV NS 0.9% 1,000 ML IV PRN (10:32)
[2018-07-23] MEDS: LEVETIRACETAM (500MG) 500 MG in IV NS 0.9% 100 ML IV SCH ×2 (10:32→20:58)
[2018-07-23] MEDS: MIDODRINE HCL (5MG) 5 MG TABLET PO SCH ×2 (12:46→16:19)
--- NOTE | 2018-07-23 14:30 | NUR ---
COP NOTES PATIENT NOTED WITH PULSE OF 38-39 WHILE SLEEPING. ONCE PATIENT AWAKE PULSE INCREASES TO 45-52 SINUS SHANNON. ASYMPTOMATIC. BAKARI PUMP ASSEMBLER NOTIFIED ORDERS TO CONTINUE TO MONITOR.
[2018-07-23] MEDS: LEVOFLOXACIN 750 MG /D5W 150ML 750 MG in PREMIX 1 EA IV SCH (15:05)
[2018-07-23] MEDS: LACTOBACILLUS RHAMNOSUS GG 1 EACH CAP.SPRINK PO SCH (16:13)
--- NOTE | 2018-07-23 16:20 | NUR ---
SENIOR ORACLE DATABASE DEVELOPER NOTES PATIENT BP NOTED 134/74 MIDODRONE HELD WILL CONTINUE TO MONITOR.
[2018-07-23] MEDS: PANTOPRAZOLE 40 MG VIAL IV SCH (16:32)
--- NOTE | 2018-07-23 17:00 | NUR ---
[facility] WITH NOTED SETTINGS. PT IS AWAKE, BUT NON VERBAL. VENT ALARMS ARE ON AND AUDIBLE. AMBU BAG IS AT BEDSIDE. VENT IS PLUGGED INTO RED OUTLET. SX'D SMALL THIN CLEAR SECRETIONS. NO RESPIRATORY DISTRESS NOTED AT THIS TIME, WILL CONTINUE TO MONITOR PT.
--- NOTE | 2018-07-23 18:00 | NUR ---
RN CLOSING NOTES PT. IS IN BED IN LOWEST AND LOCKED POSITION SIDE RAILS UP X2, VENT AND TRACH DEPENDENT, NO S/S OF DISTRESS OR PAIN NOTED. HAS TELE MONITOR WITH RHYTHM = SB 40-50s, LFA IV 18 G PATENT AND INTACT RUNNING IVF ORDERED, G-TUBE PRESENT WITH FEEDING RUNNING AT 50 ML/HR AND TOLERATING WELL PATENT AND INTACT WITH A RESIDUAL OF 20 ML, PT NEEDS MET, CALL LIGHT WITHIN REACH AND WILL ENDORSE TO NIGHT NURSE
--- NOTE | 2018-07-23 19:00 | NUR ---
BOAT RENTAL CLERK INITIAL NOTES Received patient awake, nonverbal, opens eyes simultaneously, on bed on Dejesus's position. Tolerating vent setting well, no SOB/respiratory distress noted, saturating at 98%. On tele monitor with Sinus Naren @ 54. With patent peripheral IV line with NS infusing well @ 75ml/hr LFA G18. With GT feeding Glucerna 1.2 @ 60ml.hr tolerated well, abdomen distended, soft, active bowel sound. Kept HOB up, on aspiration precaution. Old PEG site covered with clean dry dressing, BUE blisters covered with clean dry dressing. Kept clean and dry. Will continue to monitor.
[2018-07-23] MEDS: ENOXAPARIN SODIUM 40 MG/0.4 ML DISP.SYRIN SQ SCH (20:59)
[2018-07-24] VITALS: BP 128/74
--- NOTE | 2018-07-24 02:46 | NUR ---
PATIENT WAS RECEIVED ON CONTINUOUS VENT SUPPORT ON NOTED VENT SETTINGS. B/S ARIK ZUNIGA WITH A MODERATE AMOUNT OF THIN PALE YELLOW SECRETIONS. ALARMS ON AND AUBIBLE,VENT PLUGGED INTO RED OUTLET .TRACH TUBE PATENT AND SECURED.WILL CONTINUE TO MONITOR. Addendum: 07/24/18 at 0246 by RAMAN CAMP RT Amended: Links added.
[2018-07-24 04:00] VITALS: BP 130/77
[2018-07-24] MEDS: IV NS 0.9% 1,000 ML IV PRN (04:41)
--- NOTE | 2018-07-24 06:40 | NUR ---
BUSINESS OBJECTS ANALYST CLOSING NOTES Patient on bed awake, no s/s of discomfort noted. On vent tolerated well, no SOB/respiratory distress noted. Suction Q2h and PRN. Routine care done, with patient tolerating well, no complications noted. Off GTF at 2AM and resumed at 6AM @ 60ml/hr, tolerating well. Abdomen remained distented, bowel sounds active in all quadrants, no vomiting noted. Had BM with appearance as expected because of GTF. Remained afebrile all throughout the shift. Tele monitor shows sinus tanner at 58. Kept clean, dry and comfortable. Endorsed to the next shift.
--- NOTE | 2018-07-24 07:50 | NUR ---
ms rn received on bed, awake,non verbal,vent dependent patient, not in any for of distress,respirations even and unlabored,no sob noted. lungs have ronchi bilaterally, abdomen soft,positive bowel sounds, g tube intact,tolerating feeding well ,w/ 30ml residual, no s/s of distress noted.,will monitor patient's condition.
[2018-07-24 08:00] VITALS: BP 122/69
--- NOTE | 2018-07-24 08:30 | NUR ---
ms rhys due meds given via g tube ,tolerated well.
--- NOTE | 2018-07-24 08:35 | NUR ---
RT RECD PT TRACHED INTACT AND SECURED ON MECH VENT NURIA ORDERED SETTINGS. ALARMS ON AND AUDIBLE BAG AND MASK AT HOB SX THICK PALE YELLOW SMALL SECRETIONS. NO RESP DISTRESS NOTED ATT WILL CONTINUE TO MONITOR
[2018-07-24] MEDS: AMIODARONE HCL 200 MG TABLET GT SCH (09:00)
[2018-07-24] MEDS ORDERED: LEVETIRACETAM SOL (5 ML) 100 MG/ML UDC GT SCH (09:00)
[2018-07-24] MEDS: LACTOBACILLUS RHAMNOSUS GG 1 EACH CAP.SPRINK PO SCH (09:46)
[2018-07-24] MEDS: MIDODRINE HCL (5MG) 5 MG TABLET PO SCH ×2 (09:47→13:00)
[2018-07-24] MEDS: Z GUARD REMEDY 2 OZ OINT TP SCH (09:48)
[2018-07-24] MEDS: MUPIROCIN OINT 2% 22 GM TUBE SCH (09:48)
[2018-07-24] MEDS: Z GUARD REMEDY 2 OZ OINT TP PRN (09:48)
[2018-07-24] MEDS ORDERED: POTASSIUM CHLORIDE 20 MEQ TAB.PRT.SR PO ONE (10:30)
[2018-07-24] MEDS ORDERED: LEVO750T46 IV (10:31)
[2018-07-24] MEDS ORDERED: POTA20TA83 GT (10:31)
[2018-07-24] MEDS ORDERED: VANC1PLA9 IV (10:31)
[2018-07-24 11:54] LABS: BASOPHILS % (AUTO) 0.3 % (0.0-2.0); EOSINOPHILS % (AUTO) 3.9 % (0.0-6.0); HEMATOCRIT 31 % (39-51); HEMOGLOBIN 9.6 g/dL (13.5-17.5); LYMPHOCYTES # (AUTO) 3.8 /CMM (0.8-4.8); LYMPHOCYTES % (AUTO) 40.6 % (20.0-44.0); MEAN CORPUSCULAR HEMOGLOBIN 28 PG (26.0-33.0); MEAN CORPUSCULAR HGB CONC 31 g/dl (31.0-36.0); MEAN CORPUSCULAR VOLUME 90 fL (80-96); MONOCYTES # (AUTO) 0.6 /CMM (0.1-1.30); MONOCYTES % (AUTO) 6.4 % (2.0-12.0); NEUTROPHILS # (AUTO) 4.6 /CMM (1.8-8.9); NEUTROPHILS % (AUTO) 48.8 % (43.0-81.0); PLATELET COUNT (AUTO) 270 /CMM (150-450); RDW COEFFICIENT OF VARIATION 16.9 (11.5-15.0); RED BLOOD CELL COUNT(AUTO) 3.42 MIL/uL (4.5-6.0); WHITE BLOOD COUNT (AUTO) 9.4 K/uL (4.3-11.0)
[2018-07-24 12:04] LABS: CALCIUM, SERUM 8.7 mg/dL (8.5-10.1); CREATININE 1.1 mg/dL (0.6-1.3); POTASSIUM 3.3 mmol/L (3.5-5.1)
[2018-07-24 13:00] VITALS: BP 163/63
[2018-07-24] MEDS: LEVOFLOXACIN 750 MG /D5W 150ML 750 MG in PREMIX 1 EA IV SCH (16:10)
--- NOTE | 2018-07-24 16:28 | NUR ---
ms rn patient transferred to snf w/ report given to Hayden joiner,all needs attended.
== END 2018-07-24 16:10 | DRG 252 ==
LOC: ER 15:54 → TELE 18:00
PROVIDERS: ADMIT Hospitalist; ATTEND Nurse Practitioner Acute Care
PROC: 5A1955Z Respiratory Ventilation, Greater than 96 Consecutive Hours (ICD-10-PCS; 2018-07-18)
PROC: 0D20XUZ Change Feeding Device in Upper Intestinal Tract, External Approach (ICD-10-PCS; principal; 2018-07-21 14:05)
DX: K94.22 Gastrostomy infection (principal); J69.0 Pneumonitis due to inhalation of food and vomit; K65.1 Peritoneal abscess; G93.41 Metabolic encephalopathy; A41.9 Sepsis, unspecified organism; Z99.11 Dependence on respirator [ventilator] status; J96.11 Chronic respiratory failure with hypoxia; G40.909 Epilepsy, unspecified, not intractable, without status epilepticus; K94.23 Gastrostomy malfunction; D68.59 Other primary thrombophilia; Y83.3 Surgical operation with formation of external stoma as the cause of abnormal reaction of the patient, or of later complication, without mention of misadventure at the time of the procedure; Y82.9 Unspecified medical devices associated with adverse incidents; Y92.129 Unspecified place in nursing home as the place of occurrence of the external cause; L02.211 Cutaneous abscess of abdominal wall; R13.10 Dysphagia, unspecified; Z79.899 Other long term (current) drug therapy; K21.9 Gastro-esophageal reflux disease without esophagitis; D63.8 Anemia in other chronic diseases classified elsewhere; Z89.512 Acquired absence of left leg below knee; Z89.511 Acquired absence of right leg below knee; K59.00 Constipation, unspecified; Z74.01 Bed confinement status; I48.2 Chronic atrial fibrillation; E87.6 Hypokalemia; Z86.73 Personal history of transient ischemic attack (TIA), and cerebral infarction without residual deficits
CPT/HCPCS: 31720; 36415; 71045-TC; 74018; 80048-TC; 80061-TC; 80076-TC; 80202-TC; 81000-TC; 83605-TC; 83735-TC; 84100-TC; 84443-TC; 84484-TC; 85025-TC; 85730-TC; 86850-TC; 87040-TC; 87070-TC; 87081-TC; 87086-TC; 87186-TC; 94002-TC; 94003-TC; 94760-TC; 99082-TC; A4216; A4606; A6253; A6402; A6403; C9113; J1650; J1953; J1956; J2543; J3370; J3480; J3490; J7030; J7040; J7050; J7060; Q9963; Z7610

== ENCOUNTER 2018-09-01 15:26 | Emergency (ER) | payer OTHER ==
[~2018-09-01] VITALS: Ht 172.7 cm; Wt 78.9 kg
[~2018-09-01 15:26] MED LIST: AMIO100T4 GT; LEVE100S GT; LEVO750T46 IV; MIDO10TA GT; NUT.237L31 GT; PANT40SU2 GT; POTA20TA83 GT; VANC1PLA9 IV
--- NOTE | 2018-09-01 15:30 | NUR ---
NAT FROM [facility] DT WORSENING ABDOMINAL DISTENSION/ ABSCESS. PATIENT IS AWAKE, NON VERBAL. VENT TRACHE DEPENDENT. NOTED ABDOMINAL AREA COVERED WITH DRESSING. PATIENT IS AFEBRILE. VSS
[2018-09-01 16:46] LABS: APPEARANCE,URINE Clear (CLEAR); BILIRUBIN,URINE Negative (NEGATIVE); BLOOD, URINE Negative Ery/uL (NEGATIVE); COLOR,URINE Yellow (YELLOW); KETONES,URINE Negative (NEGATIVE); LEUKOCYTE ESTERASE ,URINE Negative (NEGATIVE); NITRITE, URINE Negative (NEGATIVE); PROTEIN,URINE Negative (NEGATIVE); UGLUCOSE Negative (NEGATIVE); UROBILINOGEN,URINE 0.2 EU/dL (0.2)
[2018-09-01 16:49] LABS: BASOPHILS # (AUTO) 0.3 /CMM (0.0-0.2); BASOPHILS % (AUTO) 1.8 % (0.0-2.0); EOSINOPHILS % (AUTO) 3.9 % (0.0-6.0); HEMATOCRIT 27 % (39-51); HEMOGLOBIN 9.4 g/dL (13.5-17.5); LYMPHOCYTES # (AUTO) 3.2 /CMM (0.8-4.8); LYMPHOCYTES % (AUTO) 21.2 % (20.0-44.0); MEAN CORPUSCULAR HGB CONC 35 g/dl (31.0-36.0); MEAN CORPUSCULAR VOLUME 89 fL (80-96); MONOCYTES # (AUTO) 0.7 /CMM (0.1-1.30); MONOCYTES % (AUTO) 4.5 % (2.0-12.0); NEUTROPHILS # (AUTO) 10.1 /CMM (1.8-8.9); NEUTROPHILS % (AUTO) 68.6 % (43.0-81.0); PLATELET COUNT (AUTO) 366 /CMM (150-450); RDW COEFFICIENT OF VARIATION 13.9 (11.5-15.0); RED BLOOD CELL COUNT(AUTO) 3.01 MIL/uL (4.5-6.0); WHITE BLOOD COUNT (AUTO) 14.9 K/uL (4.3-11.0)
[2018-09-01 16:54] LABS: CALCIUM, SERUM 9.5 mg/dL (8.5-10.1); CREATININE 1.8 mg/dL (0.6-1.3); POTASSIUM 4.2 mmol/L (3.5-5.1)
[2018-09-01 16:56] VITALS: BP 127/82
--- NOTE | 2018-09-01 16:59 | NUR ---
RT NOTE PT PLACED ON VENT PER MD ORDER. SETTINGS ENDORSED BY TRANSPORT RT AC 14 600 40% +5. PT HAS PORTEX 8 CUFFED TRACH TUBE IN PLACE. CUFF INFLATED VIA SPORTS BOOK BOARD ATTENDANT. TRACH MIDLINE AND SECURE. ALARMS SET PER PROTOCOL AND AUDIBLE. VENT PLUGGED IN TO RED OUTLET. AMBU BAG AT BED SIDE. NO DISTRESS NOTED AT MOMENT. Addendum: 09/01/18 at 1702 by ASHVIN CAMP RT Amended: Links added.
[2018-09-01 17:00] LABS: ALBUMIN 3.6 g/dL (3.4-5.0); BILIRUBIN,DIRECT 0.1 mg/dL (0.0-0.2); BILIRUBIN,TOTAL 0.4 mg/dL (0.2-1.0)
[2018-09-01 17:33] LABS: EOSINOPHILS % (MANUAL) 4 % (0-4); LYMPHOCYTES % (MANUAL) 29 % (16-48); MONOCYTES % (MANUAL) 3 % (0-11.0); NEUTROPHILS % (MANUAL) 64 (42-76)
--- NOTE | 2018-09-01 17:33 | NUR ---
PATIENT IS BACK FROM CT
[2018-09-01] MEDS ORDERED: SACC250C GT (17:37)
[2018-09-01] MEDS ORDERED: NA P133E RC (17:37)
[2018-09-01] MEDS ORDERED: BLOO-668 IN (17:37)
[2018-09-01] MEDS ORDERED: IPRA3AMP23 IH ×2 (17:37)
[2018-09-01] MEDS ORDERED: ACET-868 GT ×2 (17:37)
[2018-09-01] MEDS ORDERED: INSU100V27 SQ (17:37)
[2018-09-01] MEDS ORDERED: BISA10SU8 RC (17:37)
[2018-09-01] MEDS ORDERED: ACET-2605 GT (17:37)
[2018-09-01] MEDS ORDERED: DOCU50LI GT (17:37)
[2018-09-01] MEDS ORDERED: METO25TA20 GT (17:38)
[2018-09-01] MEDS ORDERED: MAGN400O6 GT (17:38)
[2018-09-01] MEDS ORDERED: AMIN30LI4 GT (17:38)
[2018-09-01] MEDS ORDERED: OMEP40CA37 GT (17:38)
[2018-09-01] MEDS ORDERED: AMIK250V8 IV (17:40)
[2018-09-01] MEDS ORDERED: VANC1VIA2 IV (17:40)
--- NOTE | 2018-09-01 18:56 | NUR ---
CALLED DR JAMESON'S ANSWERING SERVICE, WAS PAGED.
--- NOTE | 2018-09-01 19:00 | NUR ---
DR JAMESON CALLED BACK ON THE PHONE WITH DR PFEIFFER.
[2018-09-01] MEDS: IV NS 0.9% 1,000 ML BAG IV ONE (19:36)
[2018-09-01 20:12] VITALS: BP 96/67
[2018-09-01 20:36] VITALS: BP 113/78
--- NOTE | 2018-09-01 20:38 | NUR ---
TRANSPORT AT BEDSIDE REPORT GIVEN TO EMT AND RT.
== END 2018-09-01 21:03 | disposition home or self-care (01) ==
LOC: ER 15:28
DX: K56.7 Ileus, unspecified (principal); D72.829 Elevated white blood cell count, unspecified; D64.9 Anemia, unspecified; E87.1 Hypo-osmolality and hyponatremia; E86.0 Dehydration; K46.9 Unspecified abdominal hernia without obstruction or gangrene; N17.9 Acute kidney failure, unspecified; R74.9 Abnormal serum enzyme level, unspecified; R79.89 Other specified abnormal findings of blood chemistry; R14.0 Abdominal distension (gaseous); I12.9 Hypertensive chronic kidney disease with stage 1 through stage 4 chronic kidney disease, or unspecified chronic kidney disease; E11.22 Type 2 diabetes mellitus with diabetic chronic kidney disease; N18.9 Chronic kidney disease, unspecified; G93.40 Encephalopathy, unspecified; I73.9 Peripheral vascular disease, unspecified; Z86.73 Personal history of transient ischemic attack (TIA), and cerebral infarction without residual deficits; Z87.01 Personal history of pneumonia (recurrent); Z87.440 Personal history of urinary (tract) infections; Z89.512 Acquired absence of left leg below knee; Z89.511 Acquired absence of right leg below knee; Z93.0 Tracheostomy status; Z93.1 Gastrostomy status; Z79.4 Long term (current) use of insulin; Z79.899 Other long term (current) drug therapy
CPT/HCPCS: 36415; 71045; 74176; 80048; 80076; 81001; 83690; 85025; 85730; 87081; 93005; 96360; 99285; A4606; J7030; Z7610; 81000-TC

== ENCOUNTER 2019-06-23 14:38 | Inpatient (IN) | payer MEDICAID ==
[~2019-06-23] VITALS: Ht 165.1 cm; Wt 82.6 kg
[~2019-06-23 14:38] MED LIST changes: +ACET-2605 GT; +ACET-868 GT; +ASCO500T10 GT; +BISA10SU11 RC; +BLOO-668 IN; +DOCU50LI GT; +INSU100V27 SQ; +IPRA3AMP23 IH; +LACT-209 GT; -LEVO750T46 IV; +MAGN400O6 GT; +METO25TA20 GT; +MULT-1094 GT; +NA P133E RC; -NUT.237L31 GT; -POTA20TA83 GT; +SACC250C GT; -VANC1PLA9 IV; +ZINC220T GT
--- NOTE | 2019-06-23 14:52 | NUR ---
PT BIB FROM SNF FOR ABD DISTENTION; PT NON VERBAL, VENT TRACHE DEPENDENT; PT ON MONITOR, VSS, NAD NOTED, PENDING MD ELLIOTT
[2019-06-23] MEDS ORDERED: ONDANSETRON HCL/PF 4 MG/2 ML VIAL IVP ONE (15:00)
[2019-06-23] MEDS ORDERED: IV NS 0.9% 500 ML BAG IV ONE (15:00)
--- NOTE | 2019-06-23 15:15 | NUR ---
PER DR WHARTON, DO INTERMITTENT SUCTION ON GT. CONNECTED TO WALL SUCTION, NO OUTPUT AT THIS TIME
[2019-06-23 15:25] LABS: BASOPHILS % (AUTO) 0.3 % (0.0-2.0); EOSINOPHILS % (AUTO) 1.5 % (0.0-6.0); HEMATOCRIT 36 % (39-51); HEMOGLOBIN 11.6 g/dL (13.5-17.5); LYMPHOCYTES % (AUTO) 17.2 % (20.0-44.0); MEAN CORPUSCULAR HGB CONC 32 g/dl (31.0-36.0); MEAN CORPUSCULAR VOLUME 92 fL (80-96); MONOCYTES # (AUTO) 0.8 /CMM (0.1-1.30); MONOCYTES % (AUTO) 7.1 % (2.0-12.0); NEUTROPHILS # (AUTO) 8.7 /CMM (1.8-8.9); NEUTROPHILS % (AUTO) 73.9 % (43.0-81.0); PLATELET COUNT (AUTO) 269 /CMM (150-450); WHITE BLOOD COUNT (AUTO) 11.7 K/uL (4.3-11.0)
[2019-06-23 15:33] LABS: CALCIUM, SERUM 9.6 mg/dL (8.5-10.1); CARBON DIOXIDE 25 mmol/L (21-32); CHLORIDE 104 mmol/L (98-107); CREATININE 1.1 mg/dL (0.6-1.3); GLUCOSE 112 mg/dL (74-106); POTASSIUM 3.6 mmol/L (3.5-5.1); SODIUM SERUM 141 mmol/L (136-145); UREA NITROGEN, BLOOD 30 mg/dL (7-18)
[2019-06-23 15:38] LABS: ALANINE AMINOTRANSFERASE 16 U/L (12-78); ALBUMIN 3.5 g/dL (3.4-5.0); ALKALINE PHOSPHATASE 107 U/L (46-116); ASPARTATE AMINOTRANSFERASE 14 U/L (15-37); BILIRUBIN,DIRECT 0.2 mg/dL (0.0-0.2); BILIRUBIN,TOTAL 0.8 mg/dL (0.2-1.0); LIPASE 67 U/L (73-393); TOTAL PROTEIN, SERUM 8.1 g/dL (6.4-8.2)
[2019-06-23] MEDS ORDERED: ONDANSETRON HCL/PF 4 MG/2 ML VIAL ONE (15:41)
[2019-06-23 16:03] LABS: BILIRUBIN,URINE Negative (NEGATIVE); BLOOD, URINE Negative Ery/uL (NEGATIVE); COLOR,URINE Yellow (YELLOW); KETONES,URINE Negative (NEGATIVE); LEUKOCYTE ESTERASE ,URINE Large (NEGATIVE); NITRITE, URINE Negative (NEGATIVE); PROTEIN,URINE Negative (NEGATIVE); UGLUCOSE Negative (NEGATIVE); UROBILINOGEN,URINE 0.2 EU/dL (0.2)
[2019-06-23 16:07] LABS: APPEARANCE,URINE SLIGHTLY CLOUDY (CLEAR)
[2019-06-23 16:08] LABS: BACTERIA,URINE Few /HPF (None Seen); RBC,URINE 0-2 /HPF (0-2); SQUAMOUS EPITHELIAL CELL,UR Few /HPF (None Seen); URINE AMORPHOUS PHOSPHATES Few /HPF (None Seen); WBC,URINE 21-50 /HPF (0-3)
[2019-06-23] MEDS ORDERED: AMIN30LI27 GT (16:36)
[2019-06-23] MEDS ORDERED: CRAN3875 GT (16:37)
[2019-06-23] MEDS ORDERED: SENN-18 GT (16:39)
--- NOTE | 2019-06-23 16:51 | NUR ---
RT PT REC'D FROM [facility] ON MECHANICAL VENT ON CHARTED SETTINGS ENDORSED BY TRANSPORT RT. TRACH TUBE PATENT SECURED, AND IN PLACE. NO SOB NOTED AT THIS TIME. VENT ALARMS ON AND AUDIBLE, VENT PLUGGED IN RED OUTLET. BVM AT [facility]. WILL CONTINUE TO MONITOR. Addendum: 06/23/19 at 1653 by MELISSA LIZ RT Amended: Links added.
--- NOTE | 2019-06-23 17:28 | NUR ---
CALLED FOR BED, TURNED MOVE SHEET
--- NOTE | 2019-06-23 19:52 | NUR ---
REPORT GIVEN TO CELL RN FOR MANOHAR.
[2019-06-23] MEDS ORDERED: ACETAMINOPHEN 325 MG TABLET PO PRN (20:30)
[2019-06-23] MEDS ORDERED: MAG HYDROX/AL HYDROX/SIMETH 30 ML UDC PO PRN (20:30)
[2019-06-23] MEDS ORDERED: MAGNESIUM HYDROXIDE 30 ML UDC PO PRN (20:30)
[2019-06-23] MEDS ORDERED: ONDANSETRON HCL/PF 4 MG/2 ML VIAL IVP PRN (20:30)
[2019-06-23] MEDS ORDERED: Z GUARD REMEDY 2 OZ OINT TP PRN (20:30)
[2019-06-23] MEDS ORDERED: HYDROCODONE/APAP 5/325MG 1 EACH TABLET PO PRN (20:30)
[2019-06-23] MEDS ORDERED: ZOLPIDEM TARTRATE 5 MG TABLET PO PRN (20:30)
[2019-06-23 20:53] VITALS: BP 110/71
[2019-06-23] MEDS ORDERED: JEVITY 1.2 CAL 1,000 ML BOTTLE GT SCH (21:00)
[2019-06-23] MEDS ORDERED: BISACODYL SUPP (10 MG) 10 MG/SUPP.RECT SUPP.RECT RC PRN (21:00)
[2019-06-23] MEDS ORDERED: CEFTRIAXONE 1 G VIAL ONE ×2 (22:15→22:16)
[2019-06-23] MEDS: CEFTRIAXONE 2 G in IV D5W 100 ML IV SCH (22:24)
[2019-06-23] MEDS: LEVETIRACETAM SOL (5 ML) 100 MG/ML UDC GT SCH (22:30)
[2019-06-24] VITALS (7 sets, daily range): BP systolic 86–115; BP diastolic 51–68
[2019-06-24] MEDS ORDERED: GLUCERNA 1.2 1,000 ML BOTTLE GT PRN (06:00)
[2019-06-24 07:06] LABS: BASOPHILS % (AUTO) 0.3 % (0.0-2.0); EOSINOPHILS % (AUTO) 2.5 % (0.0-6.0); HEMATOCRIT 32 % (39-51); HEMOGLOBIN 10.4 g/dL (13.5-17.5); LYMPHOCYTES # (AUTO) 1.6 /CMM (0.8-4.8); LYMPHOCYTES % (AUTO) 16.7 % (20.0-44.0); MEAN CORPUSCULAR HGB CONC 33 g/dl (31.0-36.0); MEAN CORPUSCULAR VOLUME 93 fL (80-96); MONOCYTES # (AUTO) 0.7 /CMM (0.1-1.30); MONOCYTES % (AUTO) 7.6 % (2.0-12.0); NEUTROPHILS # (AUTO) 7.1 /CMM (1.8-8.9); NEUTROPHILS % (AUTO) 72.9 % (43.0-81.0); PLATELET COUNT (AUTO) 229 /CMM (150-450); RED BLOOD CELL COUNT(AUTO) 3.46 MIL/uL (4.5-6.0); WHITE BLOOD COUNT (AUTO) 9.7 K/uL (4.3-11.0)
--- NOTE | 2019-06-24 07:12 | NUR ---
RN NOTES RECEIVED PATIENT FROM ER VIA STRETCHER IN STABLE CONDITION. VITAL SIGNS WNL. ALERT TO SELF, NOTED WITH EYE TRACKING. NON VERVAL, NO PHYSICAL MANIFESTATION OF PAIN OR DISCOMFORT. OBSERVED WITH ABDOMINAL DISTENTION, WITH ORDERS FOR ANDREWS ENEMA, NOTED AND CARRIED OUT, PROCEDURE TOLERATED WELL. KEPT CLEAN AND DRY. WILL ENDORSE TO NEXT SHIFT FOR CONTINUITY OF CARE.
[2019-06-24 07:28] LABS: ALBUMIN 3.1 g/dL (3.4-5.0); BILIRUBIN,TOTAL 0.6 mg/dL (0.2-1.0); CREATININE 1.3 mg/dL (0.6-1.3); MAGNESIUM 1.6 mg/dL (1.8-2.4); PHOSPHORUS 2.7 mg/dL (2.5-4.9); POTASSIUM 3.6 mmol/L (3.5-5.1); TOTAL PROTEIN, SERUM 7.1 g/dL (6.4-8.2)
--- NOTE | 2019-06-24 07:35 | NUR ---
TELE/RN OPENING NOTES RECEIVED PATIENT IN BED RESTING COMFORTABLY. EASILY AROUSABLE. NO PAIN OR ACUTE DISTRESS AT THIS TIME. RESPIRATION EVEN AND UNLABORED. PATIENT ABLE TO TOLERATE CURRENT VENT SETTINGS WELL. SKIN IS DRY WARM TO TOUCH. PATIENT IS NOTED WITH GTF. INTACT AND PATENT. NO RESIDUAL NOTED. HOB ELEVATED AT ALL TIMES. IV ACCESS INTACT AND PATENT WELL. FLUSHING WELL. NO S/S OF INFECTION OR INFILTRATION. ALL NEEDS ANTICIPATED. KEPT CLEAN AND DRY. CALL LIGHT WITHIN REACHED. REPOSITION Q2HRS. SAFETY MAINTAINED. BED LOCKED AND IN LOWEST POSITION. WILL CONTINUE TO MONITOR CLOSELY.
[2019-06-24] MEDS: DOCUSATE SODIUM LIQ 100 MG/10 ML UDC GT SCH (08:55)
[2019-06-24] MEDS: MULTIVIT W/MINERALS 1 TAB TABLET GT SCH (09:00)
[2019-06-24] MEDS: ASCORBIC ACID 500 MG TABLET GT SCH (09:00)
[2019-06-24] MEDS: AMIODARONE HCL 200 MG TABLET GT SCH (09:00)
[2019-06-24] MEDS: LEVETIRACETAM SOL (5 ML) 100 MG/ML UDC GT SCH ×2 (09:00→21:54)
--- NOTE | 2019-06-24 09:30 | NUR ---
TELE/RN NOTES TRANSFERRED CARE TO CHERI ACRRILLO. PATIENT REMAINS IN STABLE CONDITION. WILL CONTINUE TO MONITOR.
--- NOTE | 2019-06-24 10:00 | NUR ---
RISK INVESTIGATOR NOTES RECEIVED PATIENT FROM LARISSA ALONZO. PATIENT IN BED RESTING COMFORTABLY. EASILY AROUSABLE. NO PAIN OR ACUTE DISTRESS AT THIS TIME. RESPIRATION EVEN AND UNLABORED. PATIENT ABLE TO TOLERATE CURRENT VENT SETTINGS WELL. SKIN IS DRY WARM TO TOUCH. PATIENT IS NOTED WITH GTF. INTACT AND PATENT. NO RESIDUAL NOTED. HOB ELEVATED AT ALL TIMES. IV ACCESS INTACT AND PATENT WELL. FLUSHING WELL. NO S/S OF INFILTRATION. ALL NEEDS ANTICIPATED. KEPT CLEAN AND DRY. CALL LIGHT WITHIN REACHED. REPOSITION Q2HRS. SAFETY MAINTAINED. BED LOCKED AND IN LOWEST POSITION. WILL CONTINUE TO MONITOR CLOSELY.
[2019-06-24] MEDS: Magnesium 1GM/D5W 100ML PREMIX 100 ML IV SCH ×2 (10:23→10:48)
--- NOTE | 2019-06-24 10:45 | NUR ---
CARE TEAM COORDINATOR SCHEDULER NOTE GAVE PATIENT REPORT TO SAMMY ALONZO
--- NOTE | 2019-06-24 10:52 | NUR ---
RN NOTES RECEIVED REPORT FROM CHERI CARRILLO AND HER ORIENTEE CHERI ALEXANDER. PATIENT IN BED ASLEEP BUT EASILY AROUSABLE TO TOUCH. MG RUNNING AT 100ML/HR FOR REPLACEMENT. GTF RUNNING AT 20 ML/HR. VS FOLLOWS: 85/51, 12, 61, 100%.
[2019-06-24] MEDS ORDERED: IV NS 0.9% 500 ML IV ONE (11:00)
[2019-06-24] MEDS ORDERED: IV NS 0.9% 500 ML BAG IV PRN (11:00)
--- NOTE | 2019-06-24 11:14 | NUR ---
CHERI NOTES SBP <90. PER MD ORDER, ADMINISTER NS 500ML BOLUS. ORDER CARRIED OUT. IF SBP STILL <90, ADMINISTER NS AT 100ML/HR Addendum: 06/24/19 at 1115 by MICHEAL CHOUDHURY RN CURRENT BP 88/63
--- NOTE | 2019-06-24 13:00 | NUR ---
RN NOTES HAD TO CALL PHARMACY TO CHANGE THE TIME FOR MG, OTHER RN GAVE 1 BAG AND ORDERED WAS 2 BAGS TOTAL. COULD NOT GET ORDER FROM [facility]. PHARMACY CHANGED TIME TO 1330
--- NOTE | 2019-06-24 13:02 | NUR ---
RN NOTES PATIENT TRANSFERRED BACK TO [facility]/TELE FLOOR. TRANSFERRED VIA ACLS PROTOCOL. VSS NO DISTRESS NOTED.
[2019-06-24] MEDS: PROSOURCE / PROSTAT (PYXIS) 30 ML UDC GT SCH ×2 (13:03→16:52)
[2019-06-24] MEDS ORDERED: Magnesium 1GM/D5W 100ML PREMIX 100 ML IV SCH (13:30)
--- NOTE | 2019-06-24 17:04 | NUR ---
RN NOTES GLUCERNA WAS ADMINISTERED BY NOC SHIFT AT 2300. GTF WAS NOT SCANNED. SCANNED LATE AT THIS TIME - 1704
[2019-06-24] MEDS: METOCLOPRAMIDE HCL 10 MG/2 ML VIAL IV SCH (18:31)
--- NOTE | 2019-06-24 18:46 | NUR ---
RN CLOSING NOTES PATIENT IN BED, OPENS EYES ONLY NON VERBAL. NO BM TODAY. ALDEN AT BEDSIDE, ORDERED REGLAN AND GT TO LIS. KUB IN AM AND STOOL OB. RIGHT HAND AND LEFT HAND IV SITES SALINE LOCKED. MG WAS REPLACED. ONLY 20 ML RESIDUALS FROM TODAY. SACRAL WOUND COVERED WITH MEPILEX. WOUND CONSULT STILL PENDING. WILL ENDORSE TO NOC SHIFT FOR MANOHAR
--- NOTE | 2019-06-24 19:15 | NUR ---
GUARD CHIEF OPENING NOTES RECEIVED PATIENT IN BED, OPENS EYES, NON VERBAL. ON MECHANICAL VENT TRACH SETTINGS ORDERED, TOLERATING WELL. NO SOB NOTED. SATURATING 100%. ON TELE MONITOR SINUS SHANNON WITH HR 50S. IV SITES RIGHT HAND AND LEFT HAND BOTH FLUSHING AND PATENT, SITES C/D/I, SALINE LOCKED. GTUBE NOTED ON LOW INTERMITTENT SUCTIONING. PATIENT ON DIAPER. WILL CONTINUE TO MONITOR PT CLOSELY.
[2019-06-24] MEDS: IV NS 0.9% 1,000 ML IV PRN (19:55)
--- NOTE | 2019-06-24 20:02 | NUR ---
EMBOSSING CALENDER OPERATOR NOTES PATIENT BP 87/52 MD MADE AWARE. ORDERED NS 1000ML BOLUS. WILL ATTEND TO MD ORDER. WILL CONT TO MONITOR PT.
[2019-06-24] MEDS ORDERED: IV NS 0.9% 1,000 ML BAG IV STA (20:06)
[2019-06-24] MEDS: PIPERACILLIN /TAZOBACTAM 3.375 G in IV D5W 50 ML IV SCH (20:06)
--- NOTE | 2019-06-24 21:06 | NUR ---
ACCOUNT SERVICES MANAGER NOTES RECHECKED PATIENT BP 94/70 POST NS 1000ML BOLUS. WILL CONT TO MONITOR.
[2019-06-24] MEDS: CEFTRIAXONE 2 G in IV D5W 100 ML IV SCH (21:54)
--- NOTE | 2019-06-24 21:54 | NUR ---
CEMENT MASON NOTES ADMINISTERED KEPPRA 100MG VIA GTUBE. WILL HOLD GTUBE LOW INTERMITTENT SUCTION FOR 30-60MINS.
--- NOTE | 2019-06-24 23:45 | NUR ---
ROVING MARKER NOTES PATIENT SINUS SHANNON WITH HR 40S-50S ON THE TELE MONITOR. HOSPITALIST MADE AWARE. AWAITING FOR ORDERS.
[2019-06-25] VITALS (7 sets, daily range): BP systolic 90–131; BP diastolic 49–63
[2019-06-25] MEDS ORDERED: ALBUTEROL FS 2.5 MG/3 ML VIAL.NEB NEB PRN (00:30)
[2019-06-25] MEDS ORDERED: IPRATROPIUM NEB FS 0.5 MG/2.5 ML AMPUL.NEB NEB PRN (00:30)
[2019-06-25] MEDS: PIPERACILLIN /TAZOBACTAM 3.375 G in IV D5W 50 ML IV SCH ×2 (02:45→08:11)
[2019-06-25] MEDS: METOCLOPRAMIDE HCL 10 MG/2 ML VIAL IV SCH ×3 (02:49→19:02)
[2019-06-25 06:45] LABS: BASOPHILS % (AUTO) 0.1 % (0.0-2.0); EOSINOPHILS % (AUTO) 3.1 % (0.0-6.0); HEMATOCRIT 29 % (39-51); HEMOGLOBIN 9.7 g/dL (13.5-17.5); LYMPHOCYTES # (AUTO) 0.6 /CMM (0.8-4.8); LYMPHOCYTES % (AUTO) 8.7 % (20.0-44.0); MEAN CORPUSCULAR HGB CONC 33 g/dl (31.0-36.0); MEAN CORPUSCULAR VOLUME 92 fL (80-96); MONOCYTES # (AUTO) 0.4 /CMM (0.1-1.30); MONOCYTES % (AUTO) 5.1 % (2.0-12.0); PLATELET COUNT (AUTO) 215 /CMM (150-450); RED BLOOD CELL COUNT(AUTO) 3.18 MIL/uL (4.5-6.0); WHITE BLOOD COUNT (AUTO) 7.2 K/uL (4.3-11.0)
[2019-06-25 06:56] LABS: CALCIUM, SERUM 8.5 mg/dL (8.5-10.1); CREATININE 1.1 mg/dL (0.6-1.3); MAGNESIUM 2.1 mg/dL (1.8-2.4); POTASSIUM 3.4 mmol/L (3.5-5.1)
--- NOTE | 2019-06-25 07:15 | NUR ---
MOLD FINISHER OPENING NOTES RECEIVED BEDSIDE REPORT PATIENT A/O X1 ABLE TO FOLLOW COMMANDS AND ANSWER BY SHAKING HEAD YES AND NO. NO SIGNS OR SYMPTOMS OF RESPIRATORY DISTRESS [facility] TOLERATING SETTINGS WELL. NO ACUTE PAIN NOTED AT THIS TIME. SINUS ON THE MONITOR WITH EPISODES OF SHANNON WHILE SLEEPING. NPO WITH GTF ON HOLD. IV # 22 RIGHT HAND SALINE LOCK AND L HAND # 20 WITH NS @ 100 ML/HR FOR LOW BP. SAFETY PRECAUTIONS IN PLACE BED IN LOW LOCKED POSITION HOB ELEVATED FOR ASPIRATION PRECAUTIONS. WILL CONT TO MONITOR ACCORDINGLY
--- NOTE | 2019-06-25 07:22 | NUR ---
EMBOSSING TOOL SETTER CLOSING NOTES PATIENT IN BED, OPENS EYES, FOLLOWS SIMPLE COMMANDS, NON VERBAL. ON MECHANICAL VENT TRACH SETTINGS ORDERED, TOLERATING WELL. NO SOB NOTED. SATURATING 100%. ON TELE MONITOR SINUS RHYTHM WITH HR 60S. IV SITES RIGHT HAND AND LEFT HAND BOTH FLUSHING AND PATENT, SITES C/D/I, SALINE LOCKED. GTUBE NOTED ON LOW INTERMITTENT SUCTIONING. ALL MD ORDERS ATTENDED, ALL NEEDS ANTICIPATED AND MET. ENDORSED TO AM RN FOR MANOHAR.
[2019-06-25] MEDS: PROSOURCE / PROSTAT (PYXIS) 30 ML UDC GT SCH ×2 (09:00→17:00)
[2019-06-25] MEDS: AMIODARONE HCL 200 MG TABLET GT SCH (09:00)
[2019-06-25] MEDS: ASCORBIC ACID 500 MG TABLET GT SCH (09:58)
[2019-06-25] MEDS: LEVETIRACETAM SOL (5 ML) 100 MG/ML UDC GT SCH (09:59)
[2019-06-25] MEDS: MULTIVIT W/MINERALS 1 TAB TABLET GT SCH (09:59)
[2019-06-25] MEDS: DOCUSATE SODIUM LIQ 100 MG/10 ML UDC GT SCH (09:59)
[2019-06-25] MEDS ORDERED: POTASSIUM CHLORIDE 20 MEQ POWDER PACKET PO SCH (10:00)
[2019-06-25] MEDS: PIPERACILLIN /TAZOBACTAM 3.375 G in IV D5W 100 ML IV SCH ×2 (13:06→21:20)
--- NOTE | 2019-06-25 16:20 | NUR ---
LEFT MESSAGE WITH KATHY RUANO IN REGARDS TO PATIENT HAS 600 ML BLOODY OUTPUT IN SUCTION CONTAINER FROM GT.
--- NOTE | 2019-06-25 19:25 | NUR ---
RUBBER GASKET INSPECTOR TRIMMER OPENING NOTES RECEIVED PATIENT IN BED, OPENS EYES, ABLE TO FOLLOW SIMPLE COMMANDS, NON VERBAL. ON MECHANICAL VENT TRACH SETTINGS ORDERED, TOLERATING WELL. NO SOB NOTED. SATURATING 100%. ON TELE MONITOR SINUS SHANNON WITH HR 59. IV SITES RIGHT HAND AND LEFT HAND BOTH FLUSHING AND PATENT, SITES C/D/I, SALINE LOCKED. GTUBE NOTED ON LOW INTERMITTENT SUCTIONING WITH SEROSANGUINEOUS BROWN DRAINAGE NOTED, PER REPORT HOSPITALIST AWARE. PATIENT ON DIAPER. SAFETY MEASURES IN PLACE; CALL LIGHT WITHIN REACH, BED LOCKED AND IN LOWEST POSITIONE, SIDE RAILS UP X2. WILL CONTINUE TO MONITOR PT CLOSELY.
--- NOTE | 2019-06-25 19:32 | NUR ---
HEAD OF PRODUCT NOTES ENDORSED TO NOC SHIFT PATIENT INCREASED OUT PUT FROM GT. ORDERS FOR CONSENT TO BE OBTAINED. ALDEN TO CALL FAMILY FIRST. HAND OFF REPORT GIVEN TO NOC
[2019-06-25] MEDS: LEVETIRACETAM (500MG) 1,000 MG in IV NS 0.9% 100 ML IV SCH (20:31)
--- NOTE | 2019-06-25 21:05 | NUR ---
STRETCHER AND DRIER NOTES CALLED PATIENT DAUGHTER SILVIA DOSS FOR EGD AND ANESTHESIA CONSENT. CONSENT PLACED ON CHART.
[2019-06-26] VITALS (10 sets, daily range): BP systolic 108–127; BP diastolic 53–78
[2019-06-26] MEDS: METOCLOPRAMIDE HCL 10 MG/2 ML VIAL IV SCH ×3 (02:48→18:36)
[2019-06-26] MEDS: PIPERACILLIN /TAZOBACTAM 3.375 G in IV D5W 100 ML IV SCH ×3 (04:55→20:08)
[2019-06-26 06:31] LABS: BASOPHILS % (AUTO) 0.1 % (0.0-2.0); EOSINOPHILS % (AUTO) 7.5 % (0.0-6.0); HEMATOCRIT 31 % (39-51); HEMOGLOBIN 9.8 g/dL (13.5-17.5); LYMPHOCYTES # (AUTO) 1.4 /CMM (0.8-4.8); LYMPHOCYTES % (AUTO) 23.1 % (20.0-44.0); MEAN CORPUSCULAR HGB CONC 32 g/dl (31.0-36.0); MEAN CORPUSCULAR VOLUME 93 fL (80-96); MONOCYTES # (AUTO) 0.6 /CMM (0.1-1.30); MONOCYTES % (AUTO) 9.4 % (2.0-12.0); NEUTROPHILS # (AUTO) 3.7 /CMM (1.8-8.9); NEUTROPHILS % (AUTO) 59.9 % (43.0-81.0); PLATELET COUNT (AUTO) 220 /CMM (150-450); RED BLOOD CELL COUNT(AUTO) 3.26 MIL/uL (4.5-6.0); WHITE BLOOD COUNT (AUTO) 6.1 K/uL (4.3-11.0)
[2019-06-26 06:46] LABS: CALCIUM, SERUM 8.7 mg/dL (8.5-10.1); CREATININE 1.2 mg/dL (0.6-1.3); POTASSIUM 3.7 mmol/L (3.5-5.1)
--- NOTE | 2019-06-26 07:10 | NUR ---
MECHANICAL ENGINEERING TECHNOLOGIST CLOSING NOTES RECEIVED PATIENT IN BED, OPENS EYES, ABLE TO FOLLOW SIMPLE COMMANDS, NON VERBAL. ON MECHANICAL VENT TRACH SETTINGS ORDERED, TOLERATING WELL. NO SOB NOTED. SATURATING 100%. ON TELE MONITOR SINUS RHYTHM WITH HR 63. IV SITES RIGHT HAND AND LEFT HAND BOTH FLUSHING AND PATENT, SITES C/D/I, SALINE LOCKED. GTUBE NOTED ON LOW INTERMITTENT SUCTIONING. PATIENT ON DIAPER. SAFETY MEASURES IN PLACE; CALL LIGHT WITHIN REACH, BED LOCKED AND IN LOWEST POSITION, SIDE RAILS UP X2. ALL MD ORDERS ATTENDED, ALL NEEDS ANTICIPATED AND MET. ENDORSED TO AM RN FOR MANOHAR.
--- NOTE | 2019-06-26 07:43 | NUR ---
FRONT OFFICE ASSISTANT OPENING NOTES RECEIVED BEDSIDE REPORT PATIENT A/O X1 ABLE TO FOLLOW COMMANDS AND ANSWER BY SHAKING HEAD YES AND NO. NO SIGNS OR SYMPTOMS OF RESPIRATORY DISTRESS [facility] TOLERATING SETTINGS WELL. NO ACUTE PAIN NOTED AT THIS TIME. SINUS ON THE MONITOR WITH EPISODES OF SHANNON WHILE SLEEPING. NPO WITH GTF ON HOLD AND CONNECTED TO LOW INTERMITTENT SUCTION IV # 22 RIGHT HAND SALINE LOCK AND L HAND # 20 WITH IVATB ZOSYN RUNNING @ 25 ML/HR SAFETY PRECAUTIONS IN PLACE BED IN LOW LOCKED POSITION HOB ELEVATED FOR ASPIRATION PRECAUTIONS. WILL CONT TO MONITOR ACCORDINGLY
[2019-06-26] MEDS: DOCUSATE SODIUM LIQ 100 MG/10 ML UDC GT SCH (08:50)
[2019-06-26] MEDS: PROSOURCE / PROSTAT (PYXIS) 30 ML UDC GT SCH ×2 (08:51→17:29)
[2019-06-26] MEDS: ASCORBIC ACID 500 MG TABLET GT SCH (08:51)
[2019-06-26] MEDS: MULTIVIT W/MINERALS 1 TAB TABLET GT SCH (08:51)
[2019-06-26] MEDS: AMIODARONE HCL 200 MG TABLET GT SCH (08:51)
[2019-06-26] MEDS: NEXIUM 40 MG VIAL IV SCH ×2 (08:58→17:27)
[2019-06-26] MEDS: LEVETIRACETAM (500MG) 1,000 MG in IV NS 0.9% 100 ML IV SCH ×2 (08:58→20:09)
--- NOTE | 2019-06-26 10:07 | NUR ---
RT NOTE RECEIVED PT MECHANICALLY VENTILATED VIA CUFFED TRACHEOSTOMY TUBE. CUFF INFLATED. TRACH TUBE MIDLINE AND SECURE. VENTILATOR SETTINGS PRESCRIBED. ALARMS SET PER PROTOCOL AND AUDIBLE. VENT PLUGGED IN TO RED OUTLET. AMBU BAG AT BED SIDE. NO DISTRESS NOTED. Addendum: 06/26/19 at 1007 by ASHVIN CAMP RT Amended: Links added.
--- NOTE | 2019-06-26 10:24 | NUR ---
WOUND CARE CONSULT: PT PRESENTS WITH HYPERGRANULAR TISSUE AROUND G TUBE SITE AND SACRAL SCAR, PRESENT ON ADMISSION. DEFER TO MD FOR G TUBE SITE. RECOMMENDATIONS MADE FOR SKIN PROTECTION. DISCUSSED WITH NURSING STAFF. PT ON FIRST STEP [facility]. BILATERAL BELOW KNEE AMPUTATION STUMPS NOTED. CURRENT ALVARO SCORE IS 11. Addendum: 06/26/19 at 1026 by CLIFFORD STEVENS WNDNU Amended: Links added.
--- NOTE | 2019-06-26 11:46 | NUR ---
UA COLLECTED PER ORDER VIA STRAIGHT CATH
--- NOTE | 2019-06-26 12:46 | NUR ---
PT HAVING BEDSIDE EGD
--- NOTE | 2019-06-26 13:27 | NUR ---
EGD COMPLETE. POST OP ORDERS OBTAINED AND FAXED TO RX
[2019-06-26] MEDS: IV NS 0.9% 1,000 ML IV PRN (13:35)
--- NOTE | 2019-06-26 13:36 | NUR ---
IVF NS RUNNING @ 100 ML/HR PER ORDER FOR SBP>90 . POST OP 87/52. WILL CONT TO MONITOR . BS 67 MG/DL FILLING SEPARATOR F/U WITH
--- NOTE | 2019-06-26 13:50 | NUR ---
DEXTROSE 25 ML GIVEN IVP FOR LOW BS 67 WILL MONITOR BS
[2019-06-26] MEDS ORDERED: DEXTROSE 50%-WATER 50 ML DISP.SYRIN IVP ONE (14:00)
--- NOTE | 2019-06-26 14:55 | NUR ---
BS 115 MG/DL
[2019-06-26] MEDS: SUCRALFATE 1 G/10 ML UDC GT SCH ×2 (17:27→23:08)
[2019-06-26 19:16] LABS: CREATININE, URINE 103.2 MG/DL (30.0-125.0)
--- NOTE | 2019-06-26 19:30 | NUR ---
NO SIGNIFICANT CHANGES THROUGHOUT SHIFT ENDORSED TO NOC
--- NOTE | 2019-06-26 19:40 | NUR ---
VEHICLE COST ENGINEER NOTE: RECEIVED PT ON BED AWAKE BUT NON VERBAL, WITH NO APPARENT DISTRESS NOTED. NO FACIAL GRIMACING OR ANY SIGNS OF PAIN NOTED. ON [facility] VENT, SETTINGS ORDERED. NO SOB NOTED. SINUS SHANNON ON TELE MONITOR HR 57BPM. GT INTACT AND PATENT, NO RESIDUAL NOTED AT THIS TIME. LEFT HAND #20 AND RIGHT HAND #22 INTACT AND PATENT, IVF INFUSING WELL. KEPT CLEAN, DRY AND COMFORTABLE. SAFETY AND FALL PRECAUTIONS OBSERVED AND MAINTAINED. WILL CONTINUE TO MONITOR PT.
[2019-06-26] MEDS: JEVITY 1.2 CAL 1,000 ML BOTTLE GT PRN (19:58)
[2019-06-27] VITALS (8 sets, daily range): BP systolic 110–129; BP diastolic 55–79
[2019-06-27] MEDS: METOCLOPRAMIDE HCL 10 MG/2 ML VIAL IV SCH ×3 (01:50→17:37)
[2019-06-27] MEDS: SUCRALFATE 1 G/10 ML UDC GT SCH ×3 (05:03→17:16)
[2019-06-27] MEDS: PIPERACILLIN /TAZOBACTAM 3.375 G in IV D5W 100 ML IV SCH ×3 (05:04→21:03)
--- NOTE | 2019-06-27 06:50 | NUR ---
HOURLY SALES STAFF NOTE: NO CHANGES NOTED THROUGHOUT THE SHIFT. NO APPARENT DISTRESS NOTED. NO FACIAL GRIMACING OR ANY SIGNS OF PAIN NOTED. [facility], SETTINGS ORDERED. SUCTIONED NEEDED. SINUS SHANNON ON TELE MONITOR HR 48BPM. GT INTACT AND PATENT, 10ML RESIDUAL NOTED, JEVITY 1.2 RUNNING AT 40ML/HR, INCREASED TOLERATED. KEPT CLEAN, DRY AND COMFORTABLE. SAFETY AND FALL PRECAUTIONS OBSERVED AND MAINTAINED. WILL ENDORSE TO DAY SHIFT RN FOR CONTINUITY OF ANNEL.
[2019-06-27 07:22] LABS: BASOPHILS % (AUTO) 0.2 % (0.0-2.0); EOSINOPHILS % (AUTO) 8.4 % (0.0-6.0); HEMATOCRIT 28 % (39-51); HEMOGLOBIN 9.3 g/dL (13.5-17.5); LYMPHOCYTES # (AUTO) 1.3 /CMM (0.8-4.8); LYMPHOCYTES % (AUTO) 22.3 % (20.0-44.0); MEAN CORPUSCULAR HGB CONC 33 g/dl (31.0-36.0); MEAN CORPUSCULAR VOLUME 92 fL (80-96); MONOCYTES # (AUTO) 0.5 /CMM (0.1-1.30); NEUTROPHILS # (AUTO) 3.5 /CMM (1.8-8.9); NEUTROPHILS % (AUTO) 61.1 % (43.0-81.0); PLATELET COUNT (AUTO) 206 /CMM (150-450); RED BLOOD CELL COUNT(AUTO) 3.09 MIL/uL (4.5-6.0); WHITE BLOOD COUNT (AUTO) 5.7 K/uL (4.3-11.0)
[2019-06-27 07:35] LABS: CALCIUM, SERUM 8.7 mg/dL (8.5-10.1); POTASSIUM 3.2 mmol/L (3.5-5.1)
--- NOTE | 2019-06-27 07:40 | NUR ---
STEEPING PRESS TENDER OPENING NOTE: RECEIVED REPORT FROM PM NURSE. PT ON BED AWAKE BUT NON VERBAL, WITH NO APPARENT DISTRESS NOTED. NO FACIAL GRIMACING OR ANY SIGNS OF PAIN NOTED. ON ME[facility] VENT, TOLERATING SETTINGS WELL. NO SOB NOTED. SINUS SHANNON ON TELE MONITOR HR 52 BPM. GT INTACT AND PATENT, NO RESIDUAL NOTED AT THIS TIME. LEFT HAND #20 AND RIGHT HAND #22 INTACT AND PATENT . SAFETY ,SEIZURE AND FALL PRECAUTIONS OBSERVED AND MAINTAINED. WILL CONTINUE TO MONITOR.
[2019-06-27] MEDS: LEVETIRACETAM (500MG) 1,000 MG in IV NS 0.9% 100 ML IV SCH (08:56)
[2019-06-27] MEDS: DOCUSATE SODIUM LIQ 100 MG/10 ML UDC GT SCH (08:57)
[2019-06-27] MEDS: ASCORBIC ACID 500 MG TABLET GT SCH (08:57)
[2019-06-27] MEDS: AMIODARONE HCL 200 MG TABLET GT SCH (08:57)
[2019-06-27] MEDS: MULTIVIT W/MINERALS 1 TAB TABLET GT SCH (08:57)
[2019-06-27] MEDS: NEXIUM 40 MG VIAL IV SCH ×2 (08:57→17:16)
[2019-06-27] MEDS: PROSOURCE / PROSTAT (PYXIS) 30 ML UDC GT SCH ×2 (08:58→17:24)
[2019-06-27] MEDS ORDERED: POTASSIUM CHLORIDE 20 MEQ POWDER PACKET GT ONE (11:00)
--- NOTE | 2019-06-27 14:51 | NUR ---
BULB FARMWORKER NOTE LEFT MESSAGE TO OSWALDO RUANO REGARDING PATIENT HAS NO BM SINCE ADMISSION ON GTF WITH REGLAN.WILL CONTINUE TO MONITOR.
--- NOTE | 2019-06-27 15:33 | NUR ---
MS RN CARE TRANSFER NOTE ENDORSED ADONIS ALONZO FOR MANOHAR.
--- NOTE | 2019-06-27 15:37 | NUR ---
RN NOTE: RECEIVED REPORT FROM CARMEN ROLLINS RN FOR CONTINUITY OF CARE. PATIENT WAS AWAKE, ABLE TO SPONTANEOUSLY OPEN HIS EYES, ON VENT-TRACH DEPENDENT AND SATURATING 100%. RESPIRATION EVEN AND UNLABORED. ON ANGIOGRAPHY NURSE SB HR= 55. ON GT FEEDING OF JEVITY 1.2 @ 40ML/HR AND NO RESIDUAL WAS NOTED. (L) AND (R) HAND IV SITE NOTED PATENT AND INTACT. BED ALARMED AND LOCKED AT ALL TIMES. CALL LIGHT WITHIN REACH. NEEDS ANTICIPATED.
--- NOTE | 2019-06-27 19:51 | NUR ---
RN NOTE: BEDSIDE REPORT WAS GIVEN TO PM SHIFT NURSE FOR CONTINUITY OF CARE. PATIENT ON CONTINUOUS GT FEEDING OF JEVITY 1.2 @40ML/HR.
--- NOTE | 2019-06-27 20:04 | NUR ---
TUCKPOINTER OPENING NOTE RECEIVED PT ON BED AWAKE BUT NON VERBAL, WITH NO APPARENT DISTRESS NOTED. NO FACIAL GRIMACING OR ANY SIGNS OF PAIN NOTED. ON [facility] VENT, SETTINGS ORDERED. NO SOB NOTED. SINUS TACHY ON TELE MONITOR HR 11-140BPM. GT INTACT AND PATENT, NO RESIDUAL NOTED AT THIS TIME. LEFT HAND #20 AND RIGHT HAND #22 INTACT AND PATENT, IVF INFUSING WELL. KEPT CLEAN, DRY AND COMFORTABLE. SAFETY AND FALL PRECAUTIONS OBSERVED AND MAINTAINED. WILL CONTINUE TO MONITOR PT.
--- NOTE | 2019-06-27 20:30 | NUR ---
SALES AND SERVICE CONSULTANT NOTE G-TUBE FLOW RATE RAISED FROM 40 TO 55ML/HR. PATIENT TOLERATED WELL. WILL CONTINUE TO MONITOR.
[2019-06-27] MEDS: LEVETIRACETAM SOL (5 ML) 100 MG/ML UDC GT SCH (21:13)
[2019-06-28] VITALS (9 sets, daily range): BP systolic 96–138; BP diastolic 47–74
[2019-06-28] MEDS: SUCRALFATE 1 G/10 ML UDC GT SCH ×4 (00:26→17:27)
[2019-06-28] MEDS: METOCLOPRAMIDE HCL 10 MG/2 ML VIAL IV SCH ×3 (02:43→18:30)
[2019-06-28] MEDS: JEVITY 1.2 CAL 1,000 ML BOTTLE GT PRN (02:50)
[2019-06-28] MEDS: PIPERACILLIN /TAZOBACTAM 3.375 G in IV D5W 100 ML IV SCH ×3 (04:20→22:03)
--- NOTE | 2019-06-28 07:26 | NUR ---
CEO ZIFF DAVIS CLOSING NOTE PATIENT ON BE SLEEPING, EASY TO WAKEN, NO DISTRESS NOTED, NO FACIAL GRIMACING OR ANY SIGNS OF PAIN NOTED. ON [facility] VENT, SETTINGS ORDERED. NO SOB NOTED. SINUS SHANNON, ON TELE MONITOR HR 55BPM. GT INTACT AND PATENT, NO RESIDUAL NOTED AT THIS TIME. LEFT HAND #20 AND RIGHT HAND #22 INTACT AND PATENT, IVF INFUSING WELL. KEPT CLEAN, DRY AND COMFORTABLE. SAFETY AND FALL PRECAUTIONS OBSERVED AND MAINTAINED. REPOST WILL BE GIVEN TO THE NEXT SHIFT.
--- NOTE | 2019-06-28 07:30 | NUR ---
GENERAL ENGINEER NOTES PATIENT IN BED, HEAD OF BED ELEVATED, EYES OPEN AND BLINKING. NO ACUTE DISTRESS NOTED.NO SOB NOTED. NO FACIAL GRIMACING NOTED. ON [facility] VENT, SETTINGS ORDERED. SINUS SHANNON, ON FURNITURE SALES ASSOCIATE HR 58BPM. GT INTACT AND PATENT, NO RESIDUAL NOTED AT THIS TIME. IVAN ACCESS PATENT AND INTACT, NO SWELLING, NO REDNESS NOTED. SAFETY AND FALL PRECAUTIONS OBSERVED AND MAINTAINED. WILL CONTINUE TO MONITOR ACCORDINGLY.
[2019-06-28 07:31] LABS: BASOPHILS % (AUTO) 0.3 % (0.0-2.0); EOSINOPHILS % (AUTO) 8.6 % (0.0-6.0); HEMATOCRIT 28 % (39-51); HEMOGLOBIN 9.3 g/dL (13.5-17.5); LYMPHOCYTES # (AUTO) 1.4 /CMM (0.8-4.8); LYMPHOCYTES % (AUTO) 28.8 % (20.0-44.0); MEAN CORPUSCULAR HGB CONC 33 g/dl (31.0-36.0); MEAN CORPUSCULAR VOLUME 91 fL (80-96); MONOCYTES # (AUTO) 0.5 /CMM (0.1-1.30); MONOCYTES % (AUTO) 9.4 % (2.0-12.0); NEUTROPHILS # (AUTO) 2.6 /CMM (1.8-8.9); NEUTROPHILS % (AUTO) 52.9 % (43.0-81.0); PLATELET COUNT (AUTO) 203 /CMM (150-450); RED BLOOD CELL COUNT(AUTO) 3.11 MIL/uL (4.5-6.0); WHITE BLOOD COUNT (AUTO) 4.9 K/uL (4.3-11.0)
[2019-06-28 07:36] LABS: CALCIUM, SERUM 8.6 mg/dL (8.5-10.1); MAGNESIUM 1.7 mg/dL (1.8-2.4); PHOSPHORUS 2.3 mg/dL (2.5-4.9); POTASSIUM 3.7 mmol/L (3.5-5.1)
[2019-06-28] MEDS: LEVETIRACETAM SOL (5 ML) 100 MG/ML UDC GT SCH ×2 (08:38→22:03)
[2019-06-28] MEDS: DOCUSATE SODIUM LIQ 100 MG/10 ML UDC GT SCH (08:38)
[2019-06-28] MEDS: MULTIVIT W/MINERALS 1 TAB TABLET GT SCH (08:38)
[2019-06-28] MEDS: ASCORBIC ACID 500 MG TABLET GT SCH (08:38)
[2019-06-28] MEDS: AMIODARONE HCL 200 MG TABLET GT SCH (08:39)
[2019-06-28] MEDS: PROSOURCE / PROSTAT (PYXIS) 30 ML UDC GT SCH ×2 (08:40→17:27)
[2019-06-28] MEDS: NEXIUM 40 MG VIAL IV SCH ×2 (08:40→17:27)
[2019-06-28] MEDS: Magnesium 1GM/D5W 100ML PREMIX 100 ML IV SCH ×2 (11:05→12:11)
[2019-06-28] MEDS ORDERED: DIATR MEGLU/DIATRIZOATE SODIUM 120 ML BOTTLE (GASTROGRAPHIN) ONE ×2 (11:14→11:16)
[2019-06-28] MEDS ORDERED: NEUTRA PHOS 1 POWD.PACKET GT ONE (11:30)
--- NOTE | 2019-06-28 19:00 | NUR ---
TRANSITION LEAD NOTES PATIENT IN BED, HEAD OF BED ELEVATED, EYES OPEN AND BLINKING. NO ACUTE DISTRESS NOTED.NO SOB NOTED. NO FACIAL GRIMACING NOTED. ON [facility] VENT, SETTINGS ORDERED. SINUS SHANNON, ON GOSPEL SINGER HR 58BPM. GT INTACT AND PATENT, NO RESIDUAL NOTED AT THIS TIME. IVAN ACCESS PATENT AND INTACT, NO SWELLING, NO REDNESS NOTED. DUE MEDICATIONS GIVEN.NEEDS ATTENDED AND ANTICIPATED. KEPT CLEAN, DRY AND COMFORTABLE. SAFETY AND FALL PRECAUTIONS OBSERVED AND MAINTAINED. WILL ENDORSE TO NIGHT NURSE FOR CONTINUITY OF CARE.
--- NOTE | 2019-06-28 20:00 | NUR ---
CARMEN RN NOTES RECEIVED PATIENT IN BED, HEAD OF BED ELEVATED, EYES OPEN AND BLINKING. NO ACUTE DISTRESS NOTED.NO SOB NOTED. NO FACIAL GRIMACING NOTED. ON [facility] VENT, TOLERATING SETTINGS ORDERED. SINUS SHANNON, ON RISK DEVELOPER HR 53BPM. GT INTACT AND PATENT, NO RESIDUAL NOTED AT THIS TIME. IV ACCESS PATENT AND INTACT, NO SWELLING, NO REDNESS NOTED. NEEDS ATTENDED AND ANTICIPATED AT THIS TIME. SAFETY AND FALL PRECAUTIONS OBSERVED AND MAINTAINED. WILL CONTINUE TO MONITOR FOR CONTINUITY OF CARE.
[2019-06-29] VITALS: BP 98/55
[2019-06-29] MEDS: SUCRALFATE 1 G/10 ML UDC GT SCH ×3 (00:48→12:28)
[2019-06-29] MEDS: METOCLOPRAMIDE HCL 10 MG/2 ML VIAL IV SCH ×2 (02:55→10:13)
[2019-06-29 04:00] VITALS: BP 96/50
[2019-06-29] MEDS: JEVITY 1.2 CAL 1,000 ML BOTTLE GT PRN (04:25)
[2019-06-29 07:11] LABS: BASOPHILS % (AUTO) 0.5 % (0.0-2.0); EOSINOPHILS % (AUTO) 5.3 % (0.0-6.0); HEMATOCRIT 31 % (39-51); LYMPHOCYTES # (AUTO) 1.9 /CMM (0.8-4.8); LYMPHOCYTES % (AUTO) 31.8 % (20.0-44.0); MEAN CORPUSCULAR HGB CONC 33 g/dl (31.0-36.0); MEAN CORPUSCULAR VOLUME 92 fL (80-96); MONOCYTES # (AUTO) 0.5 /CMM (0.1-1.30); MONOCYTES % (AUTO) 8.7 % (2.0-12.0); NEUTROPHILS # (AUTO) 3.3 /CMM (1.8-8.9); NEUTROPHILS % (AUTO) 53.7 % (43.0-81.0); PLATELET COUNT (AUTO) 217 /CMM (150-450); RED BLOOD CELL COUNT(AUTO) 3.32 MIL/uL (4.5-6.0); WHITE BLOOD COUNT (AUTO) 6.1 K/uL (4.3-11.0)
[2019-06-29 07:26] LABS: CALCIUM, SERUM 8.8 mg/dL (8.5-10.1); CREATININE 1.1 mg/dL (0.6-1.3); PHOSPHORUS 2.7 mg/dL (2.5-4.9); POTASSIUM 3.9 mmol/L (3.5-5.1)
--- NOTE | 2019-06-29 07:43 | NUR ---
RN NOTE: PATIENT RECEIVED ASLEEP, OPEN EYES TO VERBAL & TACTILE STIMULI. ON VENT -TRAC, SETTINGS TOLERATING WELL. NO BREATHING DISTRESS NOTED. ASPIRATION PRECAUTIONS OBSERVED. TUBE FEEDING TOLERATING WELL. SAFETY MEASURES OBSERVED. CONTINUE TO MONITOR.
[2019-06-29 08:00] VITALS: BP_SYST 131; BP_SYST 134; BP_DIAS 69; BP_DIAS 71
[2019-06-29] MEDS: NEXIUM 40 MG VIAL IV SCH (08:53)
[2019-06-29] MEDS: DOCUSATE SODIUM LIQ 100 MG/10 ML UDC GT SCH (08:53)
[2019-06-29] MEDS: LEVETIRACETAM SOL (5 ML) 100 MG/ML UDC GT SCH (08:54)
[2019-06-29] MEDS: MULTIVIT W/MINERALS 1 TAB TABLET GT SCH (08:54)
[2019-06-29] MEDS: AMIODARONE HCL 200 MG TABLET GT SCH (08:56)
[2019-06-29] MEDS: ASCORBIC ACID 500 MG TABLET GT SCH (08:56)
[2019-06-29] MEDS: PROSOURCE / PROSTAT (PYXIS) 30 ML UDC GT SCH (08:57)
[2019-06-29 12:00] VITALS: BP 127/77
--- NOTE | 2019-06-29 15:21 | NUR ---
RN NOTE: PATIENT DISCHARGE TO [facility] , NON VERBAL , OPEN EYES. `` VENT-TRAC. NO S/S OF DISTRESS NOTED. ABDOMEN DISTENDED, SOFT TO TOUCH. BM X1. 2 PERIPHERAL LINES REMOVED. REPORT GIVEN TO Raysa ALONZO. DISCHARGE PACKAGE GIVEN TO [employer] SALES & RT. SISTER & MADE AWARE BY THE TEXTILE MACHINE MAINTENANCE MECHANIC. NO BELONGINGS AT BEDSIDE.
== END 2019-06-29 14:35 | DRG 247 ==
LOC: ER 14:50 → MEDSG1 19:40 → TELE1 21:05 → ICU 06-24 09:30 → TELE1 06-24 12:35
PROVIDERS: ADMIT Nurse Practitioner Acute Care; ATTEND Hospitalist
PROC: 5A1955Z Respiratory Ventilation, Greater than 96 Consecutive Hours (ICD-10-PCS; principal; 2019-06-23)
PROC: 0DJ08ZZ Inspection of Upper Intestinal Tract, Via Natural or Artificial Opening Endoscopic (ICD-10-PCS; 2019-06-26)
DX: K56.7 Ileus, unspecified (principal); G93.1 Anoxic brain damage, not elsewhere classified; Z99.11 Dependence on respirator [ventilator] status; J96.10 Chronic respiratory failure, unspecified whether with hypoxia or hypercapnia; Z93.0 Tracheostomy status; D68.69 Other thrombophilia; I95.9 Hypotension, unspecified; G40.909 Epilepsy, unspecified, not intractable, without status epilepticus; I48.91 Unspecified atrial fibrillation; E11.22 Type 2 diabetes mellitus with diabetic chronic kidney disease; E44.1 Mild protein-calorie malnutrition; Z93.1 Gastrostomy status; K21.9 Gastro-esophageal reflux disease without esophagitis; N18.9 Chronic kidney disease, unspecified; N39.0 Urinary tract infection, site not specified; I12.9 Hypertensive chronic kidney disease with stage 1 through stage 4 chronic kidney disease, or unspecified chronic kidney disease; Z86.73 Personal history of transient ischemic attack (TIA), and cerebral infarction without residual deficits; D63.8 Anemia in other chronic diseases classified elsewhere; E87.6 Hypokalemia; Z87.440 Personal history of urinary (tract) infections; J98.11 Atelectasis; D72.829 Elevated white blood cell count, unspecified; Z68.30 Body mass index [BMI] 30.0-30.9, adult; E88.09 Other disorders of plasma-protein metabolism, not elsewhere classified; E83.42 Hypomagnesemia; Z89.432 Acquired absence of left foot; Z89.431 Acquired absence of right foot; E11.51 Type 2 diabetes mellitus with diabetic peripheral angiopathy without gangrene; Z87.01 Personal history of pneumonia (recurrent); E83.39 Other disorders of phosphorus metabolism; K29.71 Gastritis, unspecified, with bleeding; K29.70 Gastritis, unspecified, without bleeding; R13.10 Dysphagia, unspecified; Z89.512 Acquired absence of left leg below knee; Z89.511 Acquired absence of right leg below knee; I48.0 Paroxysmal atrial fibrillation
CPT/HCPCS: 31720; 36415; 71045-TC; 74018; 74250-TC; 76770-TC; 80048-TC; 80053-TC; 80061-TC; 80076-TC; 81000-TC; 82570-TC; 82962-TC; 83690-TC; 83735-TC; 84100-TC; 84300-TC; 84484-TC; 85025-TC; 85610-TC; 85730-TC; 86850-TC; 87081-TC; 87086-TC; 94003-TC; 94760-TC; 94762-TC; 99082-TC; A4623; A7526; G0378; J0696; J1953; J2405; J2543; J2704; J2765; J3475; J7030; J7040; J7050; J7060; Q9963